=== PATIENT | female | born 1945 | race Caucasian/White ===

== ENCOUNTER 2017-01-30 04:08 | Inpatient (IN) | payer MEDICARE, BC ==
[2017-01-30] MEDS ORDERED: ONDANSETRON 4 MG/2 ML VIAL IVP STA (05:03)
[2017-01-30] MEDS ORDERED: HYDROmorphone 1 MG/ML 1 ML SYRINGE IVP STA ×2 (05:03→07:03)
--- NOTE | 2017-01-30 05:20 | ED ---
Upper Extremity HPI - General Chief Complaint: Extremity Injury, Upper Stated Complaint: arm injury Time Seen by Provider: 01/30/17 04:51 Source: patient, EMS Mode of arrival: EMS - History of Present Illness Initial Comments: This patient is a 71-year-old woman brought in to be evaluated by EMS. History is from the patient and from her significant other, who state that she had gotten up to use the bathroom, she then thinks she lost her balance and fell, striking her left shoulder against the floor wall. She has significant pain at the shoulder and is not able to move her arm without severe pain. Patient denies other injury. She did not have loss of consciousness. She was able to stand to get up onto the EMS stretcher. The patient had her shoulder placed in a sling by EMS and that did help with the pain little bit. She also had some analgesics from EMS and that also helped. She states that if she just lies still the pain is mild to moderate but any movement of the left arm makes the pain severe. Patient denies weakness or numbness of the hand. MD Complaint: Injury to:: left, shoulder Onset/Timin -: hour(s) Handedness: right Place: home Improves With: immobilization Worsens With: movement of extremity Context: fall Associated Symptoms: denies other symptoms, heard/felt popping sensat Treatments Prior to Arrival: splint (Sling) - Related Data Home Medications Medication Instructions Recorded Confirmed Metoprolol Succinate [Toprol XL] 50 mg PO DAILY 04/09/14 01/30/17 Rosuvastatin [Crestor] 20 mg PO HS 04/09/14 01/30/17 metFORMIN HCL [Glucophage] 500 mg PO DAILY 04/09/14 01/30/17 Previous Rx's Medication Instructions Recorded Hydrocodone/Acetaminophen [[place] 1 each PO Q6HR PRN #30 tab 01/30/17 5-325] Allergies Allergy/AdvReac Type Severity Reaction Status Date / Time No Known Allergies Allergy Verified 01/30/17 04:17 Review of Systems ROS Statement: Those systems with pertinent positive or pertinent negative responses have been documented in the HPI. ROS Other: All systems not noted in ROS Statement are negative. Constitutional: Denies: fever, weakness Eyes: Denies: vision change Respiratory: Denies: cough, dyspnea Cardiovascular: Denies: chest pain, orthopnea, syncope Gastrointestinal: Denies: abdominal pain, vomiting Musculoskeletal: Reports: as per HPI, arthralgia. Denies: back pain Skin: Denies: lesions Neurological: Denies: headache, weakness, numbness, paresthesias Hematological/Lymphatic: Denies: easy bleeding Past Medical History Past Medical History: COPD, Diabetes Mellitus, Hyperlipidemia, Hypertension Additional Past Medical History / Comment(s): 12/06/15 Pt presented to [facility] ER via EMS with DIANA x 2 days. She has a productive cough of yellow phlegm. She received an updraft by EMS with some relief. She is admitted with ARDS, acute exacerbation of airway disease. Other HX: NIDDM, tracheobronchitis. History of Any Multi-Drug Resistant Organisms: None Reported Past Surgical History: Hysterectomy, Orthopedic Surgery, Tonsillectomy Additional Past Surgical History / Comment(s): d&c, left knee arthroscopy, R eye surgery which pt cannot recall what kind, Past Anesthesia/Blood Transfusion Reactions: No Reported Reaction Past Psychological History: No Psychological Hx Reported Additional Psychological History / Comment(s): Pt lives alone. She is independent. She uses no assistive device. She drives. She has a glucometer. Smoking Status: Current every day smoker Past Alcohol Use History: Occasional Additional Past Alcohol Use History / Comment(s): Pt states she smokes between -1 ppd. She has been smoking for about 50 yrs. Past Drug Use History: None Reported - Past Family History Father Family Medical History: Congestive Heart Failure (CHF), Myocardial Infarction ( [place]) Additional Family Medical History / Comment(s): Father of [place]/ CHF at age 40 or 41 yrs. Mother Family Medical History: Congestive Heart Failure (CHF), Myocardial Infarction ( [place]) Additional Family Medical History / Comment(s): Mother at age 90 yrs. General Exam General appearance: alert, in no apparent distress Head exam: Present: atraumatic, normocephalic Eye exam: Present: normal appearance Course Vital Signs 01/30/17 04:12 Temperature 98.2 F Pulse Rate 90 Respiratory 18 Rate Blood Pressure 131/74 O2 Sat by Pulse 93 L Oximetry Disposition Clinical Impression: Fracture of humerus Disposition: ADMITTED IP TO THIS HOSP Condition: Fair Instructions: Arm Fracture in Adults (ED) Prescriptions: Hydrocodone/Acetaminophen [[place] 5-325] 1 each PO Q6HR PRN #30 tab PRN Reason: Pain Referrals: Zeinab Pimentel MD [Primary Care Provider] - 1-2 days Jatinder Villafuerte MD [STAFF PHYSICIAN] - 1-2 days
--- NOTE | 2017-01-30 05:49 | XR ---
EXAM: XR Left Shoulder Complete, 2 or More Views. CLINICAL HISTORY: Reason: trauma TECHNIQUE: Two or more views of the left shoulder. COMPARISON: No relevant prior studies available. FINDINGS: Bones: Acute oblique slightly displaced and minimally impacted fracture of the humeral neck. There may be an additional nondisplaced component involving the lateral humeral head. Osteopenia and degenerative changes are present, the latter notably within the glenohumeral joint. Joints: See above. Soft tissues: Unremarkable. IMPRESSION: Acute oblique slightly displaced and minimally impacted fracture of the humeral neck. There may be an additional nondisplaced component involving the lateral humeral head.
[2017-01-30] MEDS ORDERED: NALOXONE 0.4 MG/ML 1 ML VIAL IV PRN (07:20)
[2017-01-30] MEDS ORDERED: ONDANSETRON 4 MG/2 ML VIAL IVP PRN (07:20)
[2017-01-30 08:34] LABS: Basophils # (A) 0.1 k/uL (0-0.2); Basophils % (A) 1 %; CH 29.4; CHCM 32.2; Eosinophils # (A) 0.1 k/uL (0-0.7); Eosinophils % (A) 1 %; HCT 40.9 % (34.0-46.0); HDW 2.48; HGB 13.3 gm/dL (11.4-16.0); Luc # (Auto) 0.24; Luc % (Auto) 2; Lymphocytes # (A) 1.7 k/uL (1.0-4.8); Lymphocytes % (A) 11 %; MCHC 32.6 g/dL (31.0-37.0); MCV 91.9 fL (80.0-100.0); Mean Platelet Volume 9.2; Monocytes # (A) 0.7 k/uL (0-1.0); Monocytes % (A) 4 %; Neutrophils # (A) 12.5 k/uL (1.3-7.7); Neutrophils % (A) 82 %; RBC 4.45 m/uL (3.80-5.40); RDW 14.3 % (11.5-15.5); WBC 15.3 k/uL (3.8-10.6); WBC (Perox) 15.78
--- NOTE | 2017-01-30 08:37 | CT ---
EXAMINATION TYPE: CT shoulder LT wo con DATE OF EXAM: 01/30/2017 8:21 AM COMPARISON: NONE HISTORY: Evaluate fracture, surgical planning CT DLP: 537.10 mGycm Automated exposure control for dose reduction was used. FINDINGS: There is a fracture of the surgical neck of the humerus. Slight offset of the fracture fragment from the diaphysis is present. The humeral head articulates with the glenoid. Reconstructed images in the coronal and sagittal plane are reviewed on the computer. Degenerative spu rring is present at the humeral head. Osteoarthritic degenerative changes at the glenohumeral junctio n. Acromioclavicular junction is hypertrophy is some inferior spurring. Three-D reconstructed images performed separately on the ventricular computer by the technologist are presented. IMPRESSION: 1. FRACTURE AT THE HUMERAL NECK WITH SLIGHT OFFSET. 2. DEGENERATIVE JOINT CHANGES GLENOHUMERAL JOINT SPACE
[2017-01-30 08:43] LABS: Anion Gap 16 mmol/L; Blood Urea Nitrogen 10 mg/dL (7-17); Calcium 9.1 mg/dL (8.4-10.2); Carbon Dioxide 19 mmol/L (22-30); Chloride 108 mmol/L (98-107); Glucose 215 mg/dL (74-99); Magnesium 1.5 mg/dL (1.6-2.3); Non-African American GFR(MDRD) >60 (>60 ml/min/1.73 sqM); Sodium 143 mmol/L (137-145)
[2017-01-30 08:46] LABS: Appearance,Urine Cloudy (Clear); Bacteria,Urine Few /hpf; Bilirubin,Urine Negative (Negative); Glucose,Urine (UA) 4+ (Negative); Ketones,Urine 1+ (Negative); Leukocyte Esterase,Urine Large (Negative); Mucus,Urine Rare /hpf; Nitrite,Urine Positive (Negative); Particle Count 111541; Protein,Urine Trace (Negative); RBC,Urine 6 /hpf (0-5); Specific Gravity,Urine 1.011 (1.001-1.035); Squamous Epithelial Cell,Urine 1 /hpf (0-4); UA Billing (MACRO vs. MICRO) MICRO; Urobilinogen,Urine <2.0 mg/dL (<2.0); WBC,Urine >182 /hpf (0-5)
[2017-01-30 08:47] LABS: Potassium 5.1 mmol/L (3.5-5.1)
[2017-01-30 09:01] VITALS: BMI 27.4
[2017-01-30] MEDS ORDERED: MAGNESIUM SULFATE-D5W PMX 1 GM in DEXTROSE/WATER 1 100ML.BAG IVPB ONE (09:07)
--- NOTE | 2017-01-30 09:18 | P.HPOR ---
History of Present Illness H&P Date: 01/30/17 Chief Complaint: Left proximal humerus fracture This is a 71-year-old female who fell in her home late last evening sustaining injury to her left shoulder. On exam and x-ray in the emergency department she was found to have a proximal humerus fracture. A computed tomography scan was also obtained. She is admitted to our service for further evaluation and recommendations, as well as pain management. Past Medical History Past Medical History: COPD, Diabetes Mellitus, Hyperlipidemia, Hypertension, Memory Impairment, Pneumonia Additional Past Medical History / Comment(s): NIDDM, tracheobronchitis, memory problems. History of Any Multi-Drug Resistant Organisms: None Reported Past Surgical History: Hysterectomy, Orthopedic Surgery, Tonsillectomy Additional Past Surgical History / Comment(s): d&c, left knee arthroscopy, R eye cataract removal. Past Anesthesia/Blood Transfusion Reactions: No Reported Reaction Past Psychological History: No Psychological Hx Reported Additional Psychological History / Comment(s): Pt lives alone. She is independent. She uses no assistive device. She drives. She has a glucometer. Smoking Status: Current every day smoker Past Alcohol Use History: Occasional Additional Past Alcohol Use History / Comment(s): Pt states she smokes between -11/25 ppd. She has been smoking for about 51 yrs. Past Drug Use History: None Reported - Past Family History Father Family Medical History: Congestive Heart Failure (CHF), Myocardial Infarction ( [place]) Additional Family Medical History / Comment(s): Father of [place]/ CHF at age 40 or 41 yrs. Mother Family Medical History: Congestive Heart Failure (CHF), Myocardial Infarction ( [place]) Additional Family Medical History / Comment(s): Mother at age 90 yrs. Medications and Allergies Home Medications Medication Instructions Recorded Confirmed Type Metoprolol Succinate [Toprol XL] 50 mg PO DAILY 04/09/14 01/30/17 History Rosuvastatin [Crestor] 20 mg PO HS 04/09/14 01/30/17 History metFORMIN HCL [Glucophage] 500 mg PO DAILY 04/09/14 01/30/17 History Allergies Allergy/AdvReac Type Severity Reaction Status Date / Time No Known Allergies Allergy Verified 01/30/17 08:24 Physical Examination Is a 71-year-old female in no acute distress. She is alert and oriented 3. Exam of the head neck reveal no obvious deformity. She has full cervical spine motion without difficulty or pain. There is no pain on palpation about cervical spine or paraspinal musculature. Exam of the upper extremities reveals swelling and tenderness about the left shoulder. There is no ecchymosis at this time. She has limited motion secondary to pain. She has full elbow, wrist and finger motion without difficulty or pain. Neurovascular status the upper extremity is intact. Exam the lower extremities unremarkable. She has no obvious deformity. There is no hip pain with logroll bilaterally. She can lift each leg off the bed independently. There is a small abrasion and contusion about the lateral aspect of the right knee. There is no swelling or effusion to the knee area neurovascular status to the lower extremities is intact. Results X-rays and computed tomography scan of the left shoulder reveal a mildly displaced comminuted proximal humerus fracture. The articular surfaces intact. She has moderate to severe degenerative arthritis of the glenohumeral joint with multiple spurs. - Labs Labs: Abnormal Lab Results - Last 24 Hours (Table) 01/30/17 01/30/17 Range/Units 08:24 08:24 WBC 15.3 H (3.8-10.6) k/uL Neutrophils # 12.5 H (1.3-7.7) k/uL Chloride 108 H (98-107) mmol/L Carbon Dioxide 19 L (22-30) mmol/L Glucose 215 H (74-99) mg/dL Magnesium 1.5 L (1.6-2.3) mg/dL H & H 01/30/17 Range/Units 08:24 Hgb 13.3 (11.4-16.0) gm/dL Hct 40.9 (34.0-46.0) % Result Diagrams: 01/30/17 08:24 01/30/17 08:24 Assessment and Plan (1) Fracture of proximal end of left humerus Status: Acute (2) Degenerative arthritis of left shoulder region Status: Acute Plan: The clinical and radiographic findings are discussed the patient and her family. The case was discussed with Dr. Villafuerte was also reviewed the computed tomography scan. We discussed surgical versus nonsurgical options. With her medical history and degree of arthritis in that shoulder, it is recommended that we go with nonoperative treatment at this time. A sling has been ordered. We will see how she does getting up with nursing and therapy. If she has difficulty with ambulation and ADLs, she may be a candidate for inpatient rehab.
[2017-01-30] MEDS ORDERED: HYDROcodone/APAP 5-325MG 1 EACH TAB PO PRN (09:55)
[2017-01-30] MEDS: HYDROmorphone 1 MG/ML 1 ML SYRINGE IV PRN (10:24)
[2017-01-30] MEDS: SODIUM CHLORIDE 0.9% 1,000 ML IV SCH ×2 (10:37→16:08)
[2017-01-30] MEDS: METOPROLOL SUCCINATE (ER) 50 MG TAB.ER.24H PO SCH (10:38)
[2017-01-30 11:45] LABS: Glucose,Whole Blood 187 mg/dL (75-99)
--- NOTE | 2017-01-30 12:22 | P.CONS ---
History of Present Illness - Reason for Consult Consult date: 01/30/17 Medical management Requesting physician: Jatinder Villafuerte - Chief Complaint Left humerus fracture - History of Present Illness This is a 71-year-old female with a known past medical history of COPD, hypertension, nicotine dependence, diabetes and hyperlipidemia. Patient reports that she was sitting in her living room got up to go use the bathroom and she tripped and fell. She landed on her left shoulder. She had significant pain and unable to move her arm. She denies any loss of consciousness. EMS was called. Patient was brought into the emergency room. She was admitted to orthopedic service. She was found to have a left humerus fracture. Computed tomography scan of the shoulder also showing fracture of the humeral neck with slight offset. Orthopedics are not recommending any surgical intervention. Patient's arm is in a sling. Patient's white count on admission is 15.3 her urinalysis is positive for UTI. She started on Rocephin. Urine culture obtained. Patient denies any fevers chills or sweats. Denies any chest pain or shortness of breath. Denies any nausea or vomiting. Denies any bowel movement changes or urinary symptoms. Patient's is noncompliant with her medications. She has not been taking her blood pressure medication or her diabetes medication regularly. She has been educated on the importance of taking medications as prescribed. Review of Systems Please refer to HPI otherwise unremarkable Past Medical History Past Medical History: COPD, Diabetes Mellitus, Hyperlipidemia, Hypertension, Memory Impairment, Pneumonia Additional Past Medical History / Comment(s): NIDDM, tracheobronchitis, memory problems. History of Any Multi-Drug Resistant Organisms: None Reported Past Surgical History: Hysterectomy, Orthopedic Surgery, Tonsillectomy Additional Past Surgical History / Comment(s): d&c, left knee arthroscopy, R eye cataract removal. Past Anesthesia/Blood Transfusion Reactions: No Reported Reaction Past Psychological History: No Psychological Hx Reported Additional Psychological History / Comment(s): Pt lives alone. She is independent. She uses no assistive device. She drives. She has a glucometer. Smoking Status: Current every day smoker Past Alcohol Use History: Occasional Additional Past Alcohol Use History / Comment(s): Pt states she smokes between -11/25 ppd. She has been smoking for about 51 yrs. Past Drug Use History: None Reported - Past Family History Father Family Medical History: Congestive Heart Failure (CHF), Myocardial Infarction ( [place]) Additional Family Medical History / Comment(s): Father of [place]/ CHF at age 40 or 41 yrs. Mother Family Medical History: Congestive Heart Failure (CHF), Myocardial Infarction ( [place]) Additional Family Medical History / Comment(s): Mother at age 90 yrs. Medications and Allergies Home Medications Medication Instructions Recorded Confirmed Type Rosuvastatin [Crestor] 20 mg PO HS 04/09/14 01/30/17 History metFORMIN HCL [Glucophage] 500 mg PO BID 04/09/14 01/30/17 History Multivitamins, Thera [Multivitamin] 1 tab PO DAILY 01/30/17 01/30/17 History Foley-3 Fatty Acids/Fish Oil [Fish 1 cap PO DAILY 01/30/17 01/30/17 History Oil 1,000 mg Softgel] Allergies Allergy/AdvReac Type Severity Reaction Status Date / Time No Known Allergies Allergy Verified 01/30/17 08:24 Physical Exam Vitals: Vital Signs Temp Pulse Pulse Resp BP BP Pulse Ox 01/30/17 08:47 97.7 F 83 15 150/71 01/30/17 08:41 97.7 F 83 16 180/85 92 L 01/30/17 08:33 98.8 F 93 16 150/82 93 L 01/30/17 08:29 98.8 F 93 16 150/82 93 L Intake and Output 01/29/17 01/30/17 01/30/17 22:59 06:59 14:59 Other: # Voids 1 Weight 74.843 kg Patient Weight 01/31/17 06:59 Weight 74.843 kg Head normocephalic Neck supple Lungs clear to auscultation bilaterally no wheezing or crackles Heart regular rate and rhythm S1-S2, no rub or gallop Abdomen is soft nontender nondistended positive bowel sounds no hepatosplenomegaly Extremities no edema of lower extremities. Left arm in sling. Neuro alert and orientated to 3 Results CBC & Chem 7: 01/30/17 08:24 01/30/17 08:24 Labs: Abnormal Lab Results - Last 24 Hours (Table) 01/30/17 01/30/17 01/30/17 Range/Units 08:24 08:24 11:35 WBC 15.3 H (3.8-10.6) k/uL Neutrophils # 12.5 H (1.3-7.7) k/uL Chloride 108 H (98-107) mmol/L Carbon Dioxide 19 L (22-30) mmol/L Glucose 215 H (74-99) mg/dL POC Glucose (mg/dL) 187 H (75-99) mg/dL Magnesium 1.5 L (1.6-2.3) mg/dL Assessment and Plan Plan: 1. Fracture of the humeral neck: Admitted to orthopedic service. The recommending nonoperative treatment. Her arm is in a sling. Continue with current pain control. 2. UTI: Start Rocephin. Check urine culture 3. Hypomagnesemia and patient receiving magnesium supplement. Repeat labs in a.m. 4. Leukocytosis possibly related to UTI or reactive from the humerus fracture. Repeat labs in a.m. 5. Essential hypertension: Resume her metoprolol 6. Diabetes mellitus type 2: Hold metformin during hospital and sliding scale coverage. 7. Hyperlipidemia continue with the Lipitor 8. Nicotine dependence: Start nicotine patch. Patient counseled for greater than 3 minutes regarding smoking cessation Note the patient is noncompliant with her blood pressure medication and metformin at home. Patient has been educated to take prescriptions as prescribed by her physicians. Thank you for this consultation. We will continue to follow along with you. Time with Patient: Greater than 30 (Greater than 50% of the total time spent in counseling and coordination of care.I performed an examination of the patient and discussed their management with the physician Epic Prelude Analyst. I have reviewed the Physician Epic Prelude Analyst's notes and agree with the documented findings and plan of care)
[2017-01-30] MEDS: NICOTINE 14MG/24HR PATCH TRANSDERM SCH (12:32)
[2017-01-30] MEDS: INSULIN LISPRO (humaLOG) 300 UNIT/3 ML VIAL SQ SCH ×3 (12:33→21:33)
[2017-01-30] MEDS: HYDROcodone/APAP 5-325MG 1 EACH TAB PO PRN ×2 (12:34→17:40)
[2017-01-30 12:42] LABS: Hemoglobin A1C 7.9 % (4.2-6.1)
[2017-01-30 16:39] LABS: Glucose,Whole Blood 135 mg/dL (75-99)
[2017-01-30 20:23] LABS: Glucose,Whole Blood 174 mg/dL (75-99)
[2017-01-30] MEDS: ATORVASTATIN 40 MG TAB PO SCH (21:35)
[2017-01-31] MEDS: SODIUM CHLORIDE 0.9% 1,000 ML IV SCH ×3 (00:36→17:16)
[2017-01-31] MEDS: HYDROcodone/APAP 5-325MG 1 EACH TAB PO PRN ×5 (00:36→22:30)
[2017-01-31 06:57] LABS: Glucose,Whole Blood 141 mg/dL (75-99)
[2017-01-31] MEDS: NICOTINE 14MG/24HR PATCH TRANSDERM SCH (07:53)
[2017-01-31] MEDS: METOPROLOL SUCCINATE (ER) 50 MG TAB.ER.24H PO SCH (07:54)
[2017-01-31] MEDS: INSULIN LISPRO (humaLOG) 300 UNIT/3 ML VIAL SQ SCH ×4 (07:54→21:14)
[2017-01-31 07:56] LABS: Basophils # (A) 0.1 k/uL (0-0.2); Basophils % (A) 1 %; CH 29.1; CHCM 31.4; Eosinophils # (A) 0.2 k/uL (0-0.7); Eosinophils % (A) 2 %; HCT 37.7 % (34.0-46.0); HDW 2.48; HGB 11.8 gm/dL (11.4-16.0); Hypochromasia Slight; Luc # (Auto) 0.23; Luc % (Auto) 2; Lymphocytes % (A) 19 %; MCH 29.1 pg (25.0-35.0); MCHC 31.3 g/dL (31.0-37.0); MCV 93.2 fL (80.0-100.0); Mean Platelet Volume 8.7; Monocytes # (A) 0.8 k/uL (0-1.0); Monocytes % (A) 8 %; Neutrophils # (A) 6.9 k/uL (1.3-7.7); Neutrophils % (A) 68 %; RBC 4.05 m/uL (3.80-5.40); RDW 14.1 % (11.5-15.5); WBC 10.3 k/uL (3.8-10.6)
[2017-01-31 08:15] LABS: ALT 25 U/L (9-52); AST 21 U/L (14-36); Alkaline Phosphatase 85 U/L (38-126); Anion Gap 11 mmol/L; Blood Urea Nitrogen 13 mg/dL (7-17); Calcium 8.6 mg/dL (8.4-10.2); Carbon Dioxide 23 mmol/L (22-30); Chloride 108 mmol/L (98-107); Glucose 152 mg/dL (74-99); Magnesium 1.9 mg/dL (1.6-2.3); Non-African American GFR(MDRD) >60 (>60 ml/min/1.73 sqM); Potassium 4.4 mmol/L (3.5-5.1); Sodium 142 mmol/L (137-145); Total Bilirubin 0.9 mg/dL (0.2-1.3); Total Protein 5.8 g/dL (6.3-8.2)
--- NOTE | 2017-01-31 08:20 | P.PN ---
Subjective Principal diagnosis: Proximal humerus fracture left shoulder This is a 71-year-old female admitted on 02/09/2017 for a proximal humerus fracture of the left shoulder. She is doing well from an orthopedic standpoint today. She did have some difficulty with independent ADLs and ambulation. It is recommended that she go to inpatient rehab. She is awaiting clearance and transfer. Objective - Vital Signs Vital signs: Vital Signs Temp 98.6 F 01/31/17 07:00 Pulse 75 01/31/17 07:00 Resp 16 01/31/17 07:00 BP 124/81 01/31/17 07:00 Pulse Ox 93 L 01/31/17 07:00 Intake & Output 01/30/17 01/31/17 01/31/17 18:59 06:59 18:59 Intake Total 1125 Balance 1125 Weight 74.843 kg 74.843 kg Intake: IV 1125 Sodium Chloride 0.9% 1, 1125 000 ml @ 125 mls/hr IV . Q8H [facility] Rx#:[id number] Other: Voiding Method Toilet Toilet # Voids 1 1 - Exam Is a pleasant 71-year-old female in no acute distress. She is alert and oriented 3. Exam of the left upper extremity reveals mild swelling to the shoulder. There is no ecchymosis. She has full finger motion without difficulty or pain. Neurovascular status to the left upper extremity is intact. - Labs CBC & Chem 7: 01/31/17 07:04 01/31/17 07:04 Labs: Abnormal Lab Results - Last 24 Hours (Table) 01/30/17 01/30/17 01/30/17 Range/Units 08:24 08:24 08:24 WBC 15.3 H (3.8-10.6) k/uL Neutrophils # 12.5 H (1.3-7.7) k/uL Chloride 108 H (98-107) mmol/L Carbon Dioxide 19 L (22-30) mmol/L Glucose 215 H (74-99) mg/dL POC Glucose (mg/dL) (75-99) mg/dL Hemoglobin A1c 7.9 H (4.2-6.1) % Magnesium 1.5 L (1.6-2.3) mg/dL Total Protein (6.3-8.2) g/dL Albumin (3.5-5.0) g/dL 01/30/17 01/30/17 01/30/17 Range/Units 11:35 16:35 20:21 WBC (3.8-10.6) k/uL Neutrophils # (1.3-7.7) k/uL Chloride (98-107) mmol/L Carbon Dioxide (22-30) mmol/L Glucose (74-99) mg/dL POC Glucose (mg/dL) 187 H 135 H 174 H (75-99) mg/dL Hemoglobin A1c (4.2-6.1) % Magnesium (1.6-2.3) mg/dL Total Protein (6.3-8.2) g/dL Albumin (3.5-5.0) g/dL 01/31/17 01/31/17 Range/Units 06:53 07:04 WBC (3.8-10.6) k/uL Neutrophils # (1.3-7.7) k/uL Chloride 108 H (98-107) mmol/L Carbon Dioxide (22-30) mmol/L Glucose 152 H (74-99) mg/dL POC Glucose (mg/dL) 141 H (75-99) mg/dL Hemoglobin A1c (4.2-6.1) % Magnesium (1.6-2.3) mg/dL Total Protein 5.8 L (6.3-8.2) g/dL Albumin 3.3 L (3.5-5.0) g/dL Microbiology - Last 24 Hours (Table) 01/30/17 12:00 Urine Culture - Preliminary Urine,Voided Assessment and Plan (1) Fracture of proximal end of left humerus Status: Acute (2) Degenerative arthritis of left shoulder region Status: Acute Plan: Continue care. Planning discharge to inpatient rehab when cleared medically and accepted.
--- NOTE | 2017-01-31 12:06 | P.PN ---
Subjective Fall with left humerus fracture. Patient's arm is in sling. Orthopedics or not recommending any surgical intervention. Pain is tolerable. There is an patient for possible inpatient rehab. Patient denies any chest pain or shortness of breath. Denies any nausea or vomiting. She did report having a bowel movement. She denies any difficulty urinating Objective - Vital Signs Vital signs: Vital Signs Temp 98.6 F 01/31/17 07:00 Pulse 75 01/31/17 08:00 Resp 16 01/31/17 08:00 BP 124/81 01/31/17 07:00 Pulse Ox 93 L 01/31/17 07:00 Intake & Output 01/30/17 01/31/17 01/31/17 18:59 06:59 18:59 Intake Total 1125 Balance 1125 Weight 74.843 kg 74.843 kg Intake: IV 1125 Sodium Chloride 0.9% 1, 1125 000 ml @ 125 mls/hr IV . Q8H [facility] Rx#:[id number] Other: Voiding Method Toilet Toilet Toilet # Voids 1 1 1 - Exam Head normocephalic Neck supple Lungs clear to auscultation bilaterally no wheezing or crackles Heart regular rate and rhythm S1-S2, no rub or gallop Abdomen is soft nontender nondistended positive bowel sounds no hepatosplenomegaly Extremities no edema of the lower extremities. Left arm in sling. +2 radial pulse. Neuro alert and orientated to 3 - Labs CBC & Chem 7: 01/31/17 07:04 01/31/17 07:04 Labs: Abnormal Lab Results - Last 24 Hours (Table) 01/30/17 01/30/17 01/30/17 Range/Units 08:24 16:35 20:21 Chloride (98-107) mmol/L Glucose (74-99) mg/dL POC Glucose (mg/dL) 135 H 174 H (75-99) mg/dL Hemoglobin A1c 7.9 H (4.2-6.1) % Total Protein (6.3-8.2) g/dL Albumin (3.5-5.0) g/dL 01/31/17 01/31/17 Range/Units 06:53 07:04 Chloride 108 H (98-107) mmol/L Glucose 152 H (74-99) mg/dL POC Glucose (mg/dL) 141 H (75-99) mg/dL Hemoglobin A1c (4.2-6.1) % Total Protein 5.8 L (6.3-8.2) g/dL Albumin 3.3 L (3.5-5.0) g/dL Microbiology - Last 24 Hours (Table) 01/30/17 12:00 Urine Culture - Preliminary Urine,Voided Assessment and Plan Plan: 1. Fracture of the humeral neck: Admitted to orthopedic service. The recommending nonoperative treatment. Her arm is in a sling. Continue with current pain control. 2. UTI: Start Rocephin. urine culture pending 3. Hypomagnesemia and patient receiving magnesium supplement. Repeat magnesium level I.9 4. Leukocytosis possibly related to UTI or reactive from the humerus fracture. White count has normalized 5. Essential hypertension: Resume her metoprolol 6. Diabetes mellitus type 2: Hold metformin during hospital and sliding scale coverage. 7. Hyperlipidemia continue with the Lipitor 8. Nicotine dependence: Start nicotine patch. Patient counseled for greater than 3 minutes regarding smoking cessation Note the patient is noncompliant with her blood pressure medication and metformin at home. Patient has been educated to take prescriptions as prescribed by her physicians. Patient is being assessed for possible inpatient rehab
[2017-01-31 12:16] LABS: Glucose,Whole Blood 125 mg/dL (75-99)
--- NOTE | 2017-01-31 14:24 | XR ---
EXAMINATION TYPE: XR chest 2V DATE OF EXAM: 01/31/2017 2:00 PM COMPARISON: NONE TECHNIQUE: PA and lateral views submitted. HISTORY: ECF placement FINDINGS: The lungs are clear and there is no pneumothorax, pleural effusion, or focal pneumonia. Calcified l ymph nodes noted. Calcified granuloma right upper lobe. Arthropathy shoulders with evidence of previous trauma in the left humerus. IMPRESSION: 1. No acute process. Chronic granulomatous changes seen. 2. Fracture left humeral neck
[2017-01-31 16:56] LABS: Glucose,Whole Blood 162 mg/dL (75-99)
[2017-01-31] MEDS: ENOXAPARIN 40 MG/0.4 ML SYRINGE SQ SCH (17:23)
[2017-01-31 20:58] LABS: Glucose,Whole Blood 167 mg/dL (75-99)
[2017-01-31] MEDS: ATORVASTATIN 40 MG TAB PO SCH (21:14)
[2017-02-01] MEDS: HYDROmorphone 1 MG/ML 1 ML SYRINGE IV PRN (01:05)
[2017-02-01] MEDS: SODIUM CHLORIDE 0.9% 1,000 ML IV SCH ×3 (01:15→18:38)
[2017-02-01] MEDS: HYDROcodone/APAP 5-325MG 1 EACH TAB PO PRN (04:27)
[2017-02-01 06:53] LABS: Glucose,Whole Blood 148 mg/dL (75-99)
[2017-02-01 07:16] LABS: Basophils # (A) 0.1 k/uL (0-0.2); Basophils % (A) 1 %; CH 29.2; CHCM 32.1; Eosinophils # (A) 0.3 k/uL (0-0.7); Eosinophils % (A) 3 %; HCT 37.3 % (34.0-46.0); HDW 2.48; HGB 11.6 gm/dL (11.4-16.0); Luc # (Auto) 0.22; Luc % (Auto) 2; Lymphocytes # (A) 1.6 k/uL (1.0-4.8); Lymphocytes % (A) 14 %; MCH 28.6 pg (25.0-35.0); MCHC 31.2 g/dL (31.0-37.0); MCV 91.4 fL (80.0-100.0); Mean Platelet Volume 9.1; Monocytes # (A) 0.9 k/uL (0-1.0); Monocytes % (A) 9 %; Neutrophils # (A) 7.9 k/uL (1.3-7.7); Neutrophils % (A) 72 %; RBC 4.08 m/uL (3.80-5.40); RDW 14.2 % (11.5-15.5); WBC (Perox) 11.04
[2017-02-01 07:54] LABS: ALT 29 U/L (9-52); AST 20 U/L (14-36); Alkaline Phosphatase 82 U/L (38-126); Anion Gap 10 mmol/L; Blood Urea Nitrogen 14 mg/dL (7-17); Calcium 8.9 mg/dL (8.4-10.2); Carbon Dioxide 25 mmol/L (22-30); Chloride 107 mmol/L (98-107); Glucose 158 mg/dL (74-99); Non-African American GFR(MDRD) >60 (>60 ml/min/1.73 sqM); Potassium 4.7 mmol/L (3.5-5.1); Sodium 142 mmol/L (137-145); Total Protein 6.1 g/dL (6.3-8.2)
[2017-02-01] MEDS: ENOXAPARIN 40 MG/0.4 ML SYRINGE SQ SCH (08:37)
[2017-02-01] MEDS: NICOTINE 14MG/24HR PATCH TRANSDERM SCH (08:38)
[2017-02-01] MEDS: INSULIN LISPRO (humaLOG) 300 UNIT/3 ML VIAL SQ SCH ×4 (08:38→19:33)
[2017-02-01] MEDS: METOPROLOL SUCCINATE (ER) 50 MG TAB.ER.24H PO SCH (08:38)
[2017-02-01] MEDS ORDERED: HYDROcodone/APAP 7.5-325MG 1 EACH TAB PO PRN (08:41)
[2017-02-01] MEDS: HYDROcodone/APAP 7.5-325MG 1 EACH TAB PO PRN ×2 (08:58→15:09)
--- NOTE | 2017-02-01 09:22 | P.PN ---
Subjective Principal diagnosis: Left proximal humerus fracture Patient is a pleasant 71-year-old female seen at bedside today. She she has a left proximal humerus fracture which she is pending placement and transfer to inpatient rehab facility. She has no new complaints today. She continues to have pain in the left arm as expected. She continues to have difficulties with ADLs due to the pain and fracture. She denies new complaints such as numbness, tingling, burning or weakness. Review of systems is negative for fever, chills , chest pain, shortness breath, cough, calf pain or other. Objective - Vital Signs Vital signs: Vital Signs Temp 98.8 F 02/01/17 07:00 Pulse 89 02/01/17 07:00 Resp 18 02/01/17 07:00 BP 133/67 02/01/17 07:00 Pulse Ox 96 02/01/17 07:00 Intake & Output 01/31/17 02/01/17 02/01/17 18:59 06:59 18:59 Intake Total 740 200 Balance 740 200 Intake: Oral 740 200 Other: Voiding Method Toilet Toilet # Voids 2 2 1 - Exam Inspection of the left upper extremity shows resolving ecchymoses. She has intact sensation to light touch throughout the left upper extremity. She has active motor at the elbow, wrist, hand and fingers. 2+ radial pulses are present and less than 2 second cap refill is present. 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 - Constitutional General appearance: Present: no acute distress - Psychiatric Psychiatric: Present: A&O x's 3, appropriate affect, intact judgment & insight - Labs CBC & Chem 7: 02/01/17 06:43 02/01/17 06:43 Labs: Abnormal Lab Results - Last 24 Hours (Table) 01/31/17 01/31/17 01/31/17 Range/Units 12:13 16:48 20:57 WBC (3.8-10.6) k/uL Neutrophils # (1.3-7.7) k/uL Glucose (74-99) mg/dL POC Glucose (mg/dL) 125 H 162 H 167 H (75-99) mg/dL Total Protein (6.3-8.2) g/dL 02/01/17 02/01/17 02/01/17 Range/Units 06:43 06:43 06:48 WBC 11.0 H (3.8-10.6) k/uL Neutrophils # 7.9 H (1.3-7.7) k/uL Glucose 158 H (74-99) mg/dL POC Glucose (mg/dL) 148 H (75-99) mg/dL Total Protein 6.1 L (6.3-8.2) g/dL Microbiology - Last 24 Hours (Table) 01/30/17 12:00 Urine Culture - Preliminary Urine,Voided Gram Neg Bacilli Assessment and Plan (1) Fracture of proximal end of left humerus Narrative/Plan: She'll continue with routine orthopedic protocol including pain management, neurovascular status checks and medical management. I have increased her pain medication to [place] 7.5 as she continues to have some significant discomfort at the fracture site. She is pending placement and transfer to rehab which expect to be by 02/03/2017. Status: Acute Time with Patient: Less than 30
[2017-02-01 11:10] LABS: Glucose,Whole Blood 139 mg/dL (75-99)
[2017-02-01 17:16] LABS: Glucose,Whole Blood 119 mg/dL (75-99)
--- NOTE | 2017-02-01 17:22 | P.PN ---
Subjective Principal diagnosis: Left humeral neck fracture Patient is a 71-year-old female who sustained a fall and had left humeral neck fracture She was evaluated by orthopedic surgery no surgical intervention was recommended [facility] Clinically she is complaining of pain otherwise no complaints at this time Objective - Vital Signs Vital signs: Vital Signs Temp 97.9 F 02/01/17 13:42 Pulse 79 02/01/17 13:42 Resp 15 02/01/17 13:42 BP 123/70 02/01/17 13:42 Pulse Ox 96 02/01/17 13:42 Intake & Output 01/31/17 02/01/17 02/01/17 18:59 06:59 18:59 Intake Total 740 200 360 Balance 740 200 360 Intake: Oral 740 200 360 Other: Voiding Method Toilet Toilet # Voids 2 2 1 - Exam HEENT head normocephalic and atraumatic Neck is supple no JVD Chest is clear to auscultation Cardiac exam reveals regular heart sounds S1 and S2 no gallops no murmurs Abdomen is soft nontender no organomegaly Extremity exam reveals no edema no cyanosis or clubbing - Labs CBC & Chem 7: 02/01/17 06:43 02/01/17 06:43 Labs: Abnormal Lab Results - Last 24 Hours (Table) 01/31/17 02/01/17 02/01/17 Range/Units 20:57 06:43 06:43 WBC 11.0 H (3.8-10.6) k/uL Neutrophils # 7.9 H (1.3-7.7) k/uL Glucose 158 H (74-99) mg/dL POC Glucose (mg/dL) 167 H (75-99) mg/dL Total Protein 6.1 L (6.3-8.2) g/dL 02/01/17 02/01/17 Range/Units 06:48 11:04 WBC (3.8-10.6) k/uL Neutrophils # (1.3-7.7) k/uL Glucose (74-99) mg/dL POC Glucose (mg/dL) 148 H 139 H (75-99) mg/dL Total Protein (6.3-8.2) g/dL Microbiology - Last 24 Hours (Table) 01/30/17 12:00 Urine Culture - Final Urine,Voided Escherichia coli Assessment and Plan Plan: #1 fracture of the humeral neck #2 UTI maintained on IV Rocephin awaiting urine culture results #3 leukocytosis resolved #4 hypomagnesemia improved #5 hypertension well-controlled on current medication #6Diabetes mellitus maintained on insulin per sliding scale #7 hyperlipidemia on Lipitor continue #8 nicotine dependence maintained on nicotine patch
[2017-02-01] MEDS ORDERED: HYDROcodone/APAP 10-325MG 1 EACH TAB PO PRN (18:32)
[2017-02-01] MEDS: ATORVASTATIN 40 MG TAB PO SCH (19:32)
[2017-02-01 19:33] LABS: Glucose,Whole Blood 207 mg/dL (75-99)
[2017-02-01] MEDS: HYDROcodone/APAP 10-325MG 1 EACH TAB PO PRN (21:42)
[2017-02-02] MEDS: SODIUM CHLORIDE 0.9% 1,000 ML IV SCH ×2 (03:15→20:57)
[2017-02-02] MEDS: HYDROcodone/APAP 10-325MG 1 EACH TAB PO PRN ×3 (05:07→17:44)
[2017-02-02 06:53] LABS: Glucose,Whole Blood 150 mg/dL (75-99)
[2017-02-02 07:50] LABS: ALT 26 U/L (9-52); AST 18 U/L (14-36); Alkaline Phosphatase 84 U/L (38-126); Anion Gap 12 mmol/L; Blood Urea Nitrogen 11 mg/dL (7-17); Calcium 9.1 mg/dL (8.4-10.2); Carbon Dioxide 27 mmol/L (22-30); Chloride 103 mmol/L (98-107); Glucose 158 mg/dL (74-99); Non-African American GFR(MDRD) >60 (>60 ml/min/1.73 sqM); Potassium 4.3 mmol/L (3.5-5.1); Sodium 142 mmol/L (137-145); Total Bilirubin 1.2 mg/dL (0.2-1.3); Total Protein 6.3 g/dL (6.3-8.2)
[2017-02-02 07:52] LABS: Basophils # (A) 0.1 k/uL (0-0.2); Basophils % (A) 1 %; CH 29.1; CHCM 31.7; Eosinophils # (A) 0.2 k/uL (0-0.7); Eosinophils % (A) 3 %; HCT 38.4 % (34.0-46.0); HDW 2.39; Luc # (Auto) 0.24; Luc % (Auto) 3; Lymphocytes # (A) 1.3 k/uL (1.0-4.8); Lymphocytes % (A) 15 %; MCH 28.8 pg (25.0-35.0); MCHC 31.3 g/dL (31.0-37.0); MCV 92.3 fL (80.0-100.0); Mean Platelet Volume 8.3; Monocytes # (A) 0.7 k/uL (0-1.0); Monocytes % (A) 8 %; Neutrophils # (A) 6.1 k/uL (1.3-7.7); Neutrophils % (A) 71 %; RBC 4.16 m/uL (3.80-5.40); WBC 8.6 k/uL (3.8-10.6); WBC (Perox) 9.25
[2017-02-02] MEDS: ENOXAPARIN 40 MG/0.4 ML SYRINGE SQ SCH (08:12)
[2017-02-02] MEDS: INSULIN LISPRO (humaLOG) 300 UNIT/3 ML VIAL SQ SCH ×4 (08:13→21:00)
[2017-02-02] MEDS: METOPROLOL SUCCINATE (ER) 50 MG TAB.ER.24H PO SCH (08:13)
[2017-02-02] MEDS: NICOTINE 14MG/24HR PATCH TRANSDERM SCH (08:13)
[2017-02-02 08:17] VITALS: RESP 16
[2017-02-02] MEDS ORDERED: SENNOSIDES 8.6 MG TAB PO PRN (09:19)
--- NOTE | 2017-02-02 09:19 | P.PN ---
Subjective A 71-year-old female sitting up in a chair the left arm in a sling. Orthopedics recommended no surgical intervention at this time. Discharge plan in progress patient stating she's going to an [facility] facility for rehab tomorrow. Chief complaint no bowel movement in the last several days. Patient's denying nausea vomiting states pain medication effective for pain control Objective - Vital Signs Vital signs: Vital Signs Temp 98.4 F 02/02/17 08:17 Pulse 84 02/02/17 08:17 Resp 16 02/02/17 08:17 BP 136/75 02/02/17 08:17 Pulse Ox 93 L 02/02/17 08:17 Intake & Output 02/01/17 02/02/17 02/02/17 17:59 06:59 18:59 Intake Total 180 Balance 180 Intake: IV Sodium Chloride 0.9% 1, 000 ml @ 125 mls/hr IV . Q8H [facility] Rx#:[id number] Oral 180 Other: Voiding Method # Voids 1 - Exam Physical exam 71-year-old female sitting up in a chair pleasant cooperative oriented 3 Lungs essentially clear adequate air movement Heart S1-S2 audible and regular Abdomen soft nontender reports no nausea vomiting no stool states urinating no difficulty tolerating diet Extremities no edema to the lower extremities the left arm in a sling - Labs CBC & Chem 7: 02/02/17 06:57 02/02/17 06:57 Labs: Abnormal Lab Results - Last 24 Hours (Table) 02/01/17 02/01/17 02/01/17 Range/Units 11:04 17:11 19:31 Glucose (74-99) mg/dL POC Glucose (mg/dL) 139 H 119 H 207 H (75-99) mg/dL 02/02/17 02/02/17 Range/Units 06:46 06:57 Glucose 158 H (74-99) mg/dL POC Glucose (mg/dL) 150 H (75-99) mg/dL Microbiology - Last 24 Hours (Table) 01/30/17 12:00 Urine Culture - Final Urine,Voided Escherichia coli Assessment and Plan Plan: Impression Fracture of the left humeral neck Hyperlipidemia Nicotine dependency greater than a 50 year history type 2 diabetes non-insulin hemoglobin A1c 7.9 Essential hypertension present on admission leukocytosis suspect due to UTI or reactive from the humerus fracture resolving Present on admission UTI with a positive urine culture for E. coli Chronic constipation Plan Pain control Continue IV Rocephin as ordered for the UTI Monitor blood pressure address antihypertensive meds as indicated Discharge plan in progress transferred to ECF facility possible tomorrow patient request address constipation issues bowel stimulant continue home meds as appropriate patient's been counseled to stop smoking cigarettes continue the nicotine patch as ordered DVT and GI prophylaxis The above dictated assessment and findings were discussed with dr bacilio Benavides and the plan of care have been dictated as directed. Amanda Wilson nurse practitioner acting as a scribe for dr ribera
[2017-02-02] MEDS ORDERED: BISACODYL 5 MG TABLET.DR PO STA (09:20)
[2017-02-02] MEDS ORDERED: traMADol 50 MG TAB PO PRN (09:34)
--- NOTE | 2017-02-02 09:46 | P.PN ---
Subjective Principal diagnosis: Left proximal humerus fracture Patient is a pleasant 71-year-old female seen at bedside today. She she has a left proximal humerus fracture which she is pending placement and transfer to inpatient rehab facility. She has no new complaints today. She continues to have pain in the left arm as expected. She continues to have difficulties with ADLs due to the pain and fracture. She denies new complaints such as numbness, tingling, burning or weakness. Review of systems is negative for fever, chills , chest pain, shortness breath, cough, calf pain or other. Objective - Vital Signs Vital signs: Vital Signs Temp 98.4 F 02/02/17 08:17 Pulse 84 02/02/17 08:17 Resp 16 02/02/17 08:17 BP 136/75 02/02/17 08:17 Pulse Ox 93 L 02/02/17 08:17 Intake & Output 02/01/17 02/02/17 02/02/17 17:59 06:59 18:59 Intake Total 180 Balance 180 Intake: IV Sodium Chloride 0.9% 1, 000 ml @ 125 mls/hr IV . Q8H [facility] Rx#:[id number] Oral 180 Other: Voiding Method # Voids 1 - Exam Inspection of the left upper extremity shows resolving ecchymoses. She has intact sensation to light touch throughout the left upper extremity. She has active motor at the elbow, wrist, hand and fingers. 2+ radial pulses are present and less than 2 second cap refill is present. 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 - Constitutional General appearance: Present: no acute distress - Psychiatric Psychiatric: Present: A&O x's 3, appropriate affect, intact judgment & insight - Labs CBC & Chem 7: 02/02/17 06:57 02/02/17 06:57 Labs: Abnormal Lab Results - Last 24 Hours (Table) 02/01/17 02/01/17 02/01/17 Range/Units 11:04 17:11 19:31 Glucose (74-99) mg/dL POC Glucose (mg/dL) 139 H 119 H 207 H (75-99) mg/dL 02/02/17 02/02/17 Range/Units 06:46 06:57 Glucose 158 H (74-99) mg/dL POC Glucose (mg/dL) 150 H (75-99) mg/dL Microbiology - Last 24 Hours (Table) 01/30/17 12:00 Urine Culture - Final Urine,Voided Escherichia coli Assessment and Plan (1) Fracture of proximal end of left humerus Narrative/Plan: She'll continue with routine orthopedic protocol including pain management, neurovascular status checks and medical management. She is pending placement and transfer to rehab which we expect to be 02/03/2017. Status: Acute Time with Patient: Less than 30
[2017-02-02 11:17] LABS: Glucose,Whole Blood 176 mg/dL (75-99)
[2017-02-02] MEDS: POLYETHYLENE GLYCOL 3350 17 GM POWD.PACK PO SCH (13:17)
[2017-02-02 17:08] LABS: Glucose,Whole Blood 131 mg/dL (75-99)
[2017-02-02 20:36] LABS: Glucose,Whole Blood 178 mg/dL (75-99)
[2017-02-02] MEDS: ATORVASTATIN 40 MG TAB PO SCH (20:59)
[2017-02-02] MEDS: traMADol 50 MG TAB PO SCH (21:00)
[2017-02-03] MEDS: SODIUM CHLORIDE 0.9% 1,000 ML IV SCH ×2 (04:12→08:51)
[2017-02-03] MEDS: traMADol 50 MG TAB PO SCH ×2 (05:19→08:56)
[2017-02-03] MEDS: HYDROcodone/APAP 10-325MG 1 EACH TAB PO PRN (05:58)
[2017-02-03 07:06] LABS: Glucose,Whole Blood 157 mg/dL (75-99)
[2017-02-03 07:47] LABS: Basophils # (A) 0.1 k/uL (0-0.2); Basophils % (A) 1 %; CH 28.5; CHCM 29.5; Eosinophils # (A) 0.3 k/uL (0-0.7); Eosinophils % (A) 3 %; HCT 38.6 % (34.0-46.0); HDW 2.38; HGB 12.2 gm/dL (11.4-16.0); Hypochromasia Marked; Luc # (Auto) 0.29; Luc % (Auto) 3; Lymphocytes # (A) 1.4 k/uL (1.0-4.8); Lymphocytes % (A) 14 %; MCH 30.6 pg (25.0-35.0); MCHC 31.6 g/dL (31.0-37.0); MCV 96.9 fL (80.0-100.0); Mean Platelet Volume 8.5; Monocytes # (A) 1.3 k/uL (0-1.0); Monocytes % (A) 12 %; Neutrophils # (A) 6.9 k/uL (1.3-7.7); Neutrophils % (A) 67 %; RBC 3.99 m/uL (3.80-5.40); RDW 13.9 % (11.5-15.5); WBC 10.3 k/uL (3.8-10.6)
[2017-02-03 08:04] LABS: Manual Review Performed
[2017-02-03 08:35] VITALS: BP 134/66; PULSE 84; TEMP 98.5
[2017-02-03] MEDS: INSULIN LISPRO (humaLOG) 300 UNIT/3 ML VIAL SQ SCH ×2 (08:48→13:02)
[2017-02-03] MEDS: ENOXAPARIN 40 MG/0.4 ML SYRINGE SQ SCH (08:50)
[2017-02-03] MEDS: NICOTINE 14MG/24HR PATCH TRANSDERM SCH (08:50)
[2017-02-03] MEDS: METOPROLOL SUCCINATE (ER) 50 MG TAB.ER.24H PO SCH (08:50)
[2017-02-03] MEDS: POLYETHYLENE GLYCOL 3350 17 GM POWD.PACK PO SCH (08:50)
[2017-02-03] MEDS ORDERED: LACTULOSE 20 GM/30 ML CUP PO ONE (10:07)
--- NOTE | 2017-02-03 10:35 | P.DS ---
Providers Date of admission: 01/30/17 07:20 Expected date of discharge: 02/03/17 Attending physician: Jatinder Villafuerte Primary care physician: Zeinab Pimentel - Discharge Diagnosis(es) (1) Fracture of proximal end of left humerus Current Visit: Yes Status: Acute Priority: Medium (2) Degenerative arthritis of left shoulder region Current Visit: Yes Status: Acute Hospital Course: This is a 71-year-old female presents emergency department on 01/30/2017 after falling and sustaining injury to her left shoulder. On exam and x-ray in the emergency department she was found to have a proximal humerus fracture of the left arm. She was admitted to our service for further evaluation and pain management. The patient was found to have difficulties with independent ADLs and ambulation secondary to the left shoulder fracture. It is recommended that she go to inpatient rehab. Patient is discharged to [facility] for inpatient rehab on 02/03 in good condition. Patient Condition at Discharge: Fair Plan - Discharge Summary New Discharge Prescriptions: Hydrocodone/Acetaminophen [[place] 5-325] 1 each PO Q6HR PRN #30 tab PRN Reason: Pain Sennosides-Docusate Sodium [Senokot-S] 1 tab PO BID #60 tablet Discharge Medication List Rosuvastatin [Crestor] 20 mg PO HS 04/09/14 [History] metFORMIN HCL [Glucophage] 500 mg PO BID 04/09/14 [History] Hydrocodone/Acetaminophen [[place] 5-325] 1 each PO Q6HR PRN #30 tab 01/30/17 [Rx] Multivitamins, Thera [Multivitamin] 1 tab PO DAILY 01/30/17 [History] [place]-3 Fatty Acids/Fish Oil [Fish Oil 1,000 mg Softgel] 1 cap PO DAILY [History] Sennosides-Docusate Sodium [Senokot-S] 1 tab PO BID #60 tablet 01/31/17 [Rx] Follow up Appointment(s)/Referral(s): Jatinder Villafuerte MD [STAFF PHYSICIAN] - 02/11/17 9:20 am Zeinab Pimentel MD [Primary Care Provider] - 1-2 days (Patient going to [facility] and is to schedule follow up appointment after discharge from [facility].) Patient Instructions/Handouts: Arm Fracture in Adults (ED) Activity/Diet/Wound Care/Special Instructions: Sling left upper extremity for comfort. Discharge Disposition: TRANSFER TO SNF/ECF
--- NOTE | 2017-02-03 11:43 | P.PN ---
Subjective Fall with left humerus fracture. Patient's arm is in sling. Orthopedics or not recommending any surgical intervention. Pain is tolerable. There is an patient for possible inpatient rehab. Patient denies any chest pain or shortness of breath. Denies any nausea or vomiting. No abdominal pain. Did report constipation. She is passing gas. Last bowel movement 3-4 days ago. She is on stool softener and MiraLAX. We'll give 1 dose of lactulose. Objective - Vital Signs Vital signs: Vital Signs Temp 98.5 F 02/03/17 07:00 Pulse 84 02/03/17 07:00 Resp 16 02/03/17 07:00 BP 134/66 02/03/17 07:00 Pulse Ox 93 L 02/03/17 07:00 Intake & Output 02/02/17 02/03/17 02/03/17 18:59 06:59 18:59 Intake Total 298 600 Balance 298 600 Intake: Oral 298 600 Other: Voiding Method Toilet # Voids 1 2 - Exam Head normocephalic Neck supple Lungs clear to auscultation bilaterally no wheezing or crackles Heart regular rate and rhythm S1-S2, no rub or gallop Abdomen is soft nontender nondistended positive bowel sounds no hepatosplenomegaly Extremities no edema of the lower extremities. Left arm in sling. +2 radial pulse. Neuro alert and orientated to 3 - Labs CBC & Chem 7: 02/03/17 06:45 02/02/17 06:57 Labs: Abnormal Lab Results - Last 24 Hours (Table) 02/02/17 02/02/17 02/03/17 Range/Units 16:59 20:34 06:45 Monocytes # 1.3 H (0-1.0) k/uL POC Glucose (mg/dL) 131 H 178 H (75-99) mg/dL 02/03/17 Range/Units 06:59 Monocytes # (0-1.0) k/uL POC Glucose (mg/dL) 157 H (75-99) mg/dL Assessment and Plan Plan: 1. Fracture of the humeral neck: Admitted to orthopedic service. The recommending nonoperative treatment. Her arm is in a sling. Continue with current pain control. 2. UTI: Start Rocephin. Urine culture growing E. coli. Patient completed 5 days of Rocephin. No further antibiotic treatment needed 3. Hypomagnesemia and patient receiving magnesium supplement. Repeat magnesium level I.9 4. Leukocytosis possibly related to UTI or reactive from the humerus fracture. White count has normalized 5. Essential hypertension: Resume her metoprolol 6. Diabetes mellitus type 2: Hold metformin during hospital and sliding scale coverage. 7. Hyperlipidemia continue with the Lipitor 8. Nicotine dependence: Start nicotine patch. Patient counseled for greater than 3 minutes regarding smoking cessation 9. Constipation: Continue stool softener and MiraLAX. We'll give 1 dose of lactulose Note the patient is noncompliant with her blood pressure medication and metformin at home. Patient has been educated to take prescriptions as prescribed by her physicians. Patient is medically stable for discharge to [facility]. Dr. Lynn to follow at [facility]
[2017-02-03 12:13] LABS: Glucose,Whole Blood 113 mg/dL (75-99)
== END 2017-02-03 14:20 | DRG 563 ==
LOC: EC 04:08 → 3SUR 07:20
PROVIDERS: ADMIT Orthopaedic Surgery; ATTEND Orthopaedic Surgery
DX: S42.212A Unspecified displaced fracture of surgical neck of left humerus, initial encounter for closed fracture (principal); J44.9 Chronic obstructive pulmonary disease, unspecified; N39.0 Urinary tract infection, site not specified; E83.42 Hypomagnesemia; E11.9 Type 2 diabetes mellitus without complications; I10 Essential (primary) hypertension; E78.5 Hyperlipidemia, unspecified; F17.200 Nicotine dependence, unspecified, uncomplicated; K59.00 Constipation, unspecified; M19.90 Unspecified osteoarthritis, unspecified site; W01.0XXA Fall on same level from slipping, tripping and stumbling without subsequent striking against object, initial encounter; Y92.009 Unspecified place in unspecified non-institutional (private) residence as the place of occurrence of the external cause; Z79.899 Other long term (current) drug therapy; Z82.49 Family history of ischemic heart disease and other diseases of the circulatory system; Z91.14 Patient's other noncompliance with medication regimen; Z79.84 Long term (current) use of oral hypoglycemic drugs
CPT/HCPCS: 71020; 80048; 80053; 81001; 83036; 83735; 85025; 87077; 87086; 87186; 93005; 96374; 96375; 96376; 99284

== ENCOUNTER 2018-02-02 20:12 | Inpatient (IN) | payer MEDICARE, BC ==
[2018-02-02] MEDS ORDERED: methylPREDNISolone SOD SUCCI 125 MG/2 ML VIAL IV STA (20:46)
[2018-02-02] MEDS ORDERED: SODIUM CHLORIDE 0.9% 1,000 ML IV STA (20:46)
[2018-02-02] MEDS ORDERED: IPRATROPIUM-ALBUTEROL 3 ML NEB INHALATION STA ×2 (20:46→22:28)
--- NOTE | 2018-02-02 20:52 | ED ---
SOB HPI - General Chief Complaint: Shortness of Breath Stated Complaint: chest congestion DIANA HxCOPD Time Seen by Provider: 02/02/18 20:46 Source: patient, family, RN notes reviewed Mode of arrival: ambulatory Limitations: no limitations - History of Present Illness Initial Comments: This is a 72-year-old female history of COPD who states she's had shortness of breath over last several days. She's had a cough with some phlegm is unknown what color no overt fevers chills or sweats she also has had some chest pain with coughing. She does have an inhaler at home which she is only several times she did get some relief today which he did use a however. She also has some rhinorrhea and nasal congestion. She has exertional dyspnea. No other complaints this time the chest pain is nonspecific. MD Complaint: shortness of breath, cough - Related Data Home Medications Medication Instructions Recorded Confirmed metFORMIN HCL [Glucophage] 500 mg PO BID 04/09/14 02/02/18 Multivitamins, Thera [Multivitamin 1 tab PO DAILY 01/30/17 02/02/18 (formulary)] [place]-3 Fatty Acids/Fish Oil [Fish 1 cap PO HS 01/30/17 02/02/18 Oil 1,000 mg Softgel] Albuterol Inhaler [Ventolin Hfa 2 puff INHALATION RT-Q6H PRN 02/02/18 02/02/18 Inhaler] Atorvastatin [Lipitor] 80 mg PO HS 02/02/18 02/02/18 Cholecalciferol [Vitamin D3] 1,000 unit PO DAILY 02/02/18 02/02/18 Cranberry Fruit Concentrate 450 mg PO HS 02/02/18 02/02/18 [Cranberry] Memantine HCl [Namenda Xr] 7 mg PO HS 02/02/18 02/02/18 Metoprolol Succinate (ER) [Toprol 50 mg PO HS 02/02/18 02/02/18 XL] Zinc 50 mg PO DAILY 02/02/18 02/02/18 Allergies Allergy/AdvReac Type Severity Reaction Status Date / Time No Known Allergies Allergy Verified 02/02/18 21:14 Review of Systems ROS Statement: Those systems with pertinent positive or pertinent negative responses have been documented in the HPI. ROS Other: All systems not noted in ROS Statement are negative. Past Medical History Past Medical History: COPD, Dementia, Diabetes Mellitus, Hyperlipidemia, Hypertension, Memory Impairment, Pneumonia Additional Past Medical History / Comment(s): NIDDM, tracheobronchitis, memory problems. History of Any Multi-Drug Resistant Organisms: None Reported Past Surgical History: Hysterectomy, Orthopedic Surgery, Tonsillectomy Additional Past Surgical History / Comment(s): d&c, left knee arthroscopy, R eye cataract removal. Past Anesthesia/Blood Transfusion Reactions: No Reported Reaction Past Psychological History: No Psychological Hx Reported Smoking Status: Current every day smoker Past Alcohol Use History: Occasional Past Drug Use History: None Reported - Past Family History Father Family Medical History: Congestive Heart Failure (CHF), Myocardial Infarction ( [place]) Additional Family Medical History / Comment(s): Father of [place]/ CHF at age 40 or 41 yrs. Mother Family Medical History: Congestive Heart Failure (CHF), Myocardial Infarction ( [place]) Additional Family Medical History / Comment(s): Mother at age 90 yrs. General Exam - General Exam Comments Initial Comments: This is a well-developed well-nourished awake alert oriented 3 female she does demonstrate audible wheezing Limitations: no limitations General appearance: alert, anxious, in distress Head exam: Present: atraumatic, normocephalic, normal inspection Eye exam: Present: normal appearance, PERRL, EOMI. Absent: scleral icterus, conjunctival injection, periorbital swelling ENT exam: Present: normal exam, mucous membranes moist Neck exam: Present: normal inspection. Absent: tenderness, meningismus, lymphadenopathy Respiratory exam: Present: respiratory distress, wheezes, accessory muscle use, decreased breath sounds. Absent: rales, rhonchi, stridor Cardiovascular Exam: Present: normal rhythm, tachycardia, normal heart sounds. Absent: systolic murmur, diastolic murmur, rubs, gallop, clicks GI/Abdominal exam: Present: soft, normal bowel sounds. Absent: distended, tenderness, guarding, rebound, rigid Extremities exam: Present: normal inspection, full ROM, normal capillary refill. Absent: tenderness, pedal edema, joint swelling, calf tenderness Back exam: Present: normal inspection Neurological exam: Present: alert, oriented X3, CN II-XII intact Psychiatric exam: Present: normal affect, normal mood Skin exam: Present: warm, dry, intact, normal color. Absent: rash Course Vital Signs 02/02/18 02/02/18 02/02/18 20:26 21:00 21:08 Temperature 98.5 F Pulse Rate 114 H 100 96 Respiratory 20 Rate Blood Pressure 119/74 O2 Sat by Pulse 93 L Oximetry 02/02/18 02/02/18 02/02/18 22:29 22:38 22:50 Temperature 99.3 F Pulse Rate 85 83 84 Respiratory 28 H 18 18 Rate Blood Pressure 165/85 O2 Sat by Pulse 93 L Oximetry 02/02/18 23:12 Temperature Pulse Rate 89 Respiratory 18 Rate Blood Pressure 185/78 O2 Sat by Pulse 92 L Oximetry - Reevaluation(s) Reevaluation #1: 02/02/18 23:38 Patient still has significant dyspnea. Medical Decision Making - Medical Decision Making Patient was reevaluated again and still showed evidence of dyspnea with diminished breath sounds and wheezing. She will be admitted I did discuss this with the patient and family members or present. The presentation consistent with a COPD exacerbation patient has remained afebrile - Lab Data Result diagrams: 02/02/18 20:51 02/02/18 20:51 Lab Results 02/02/18 02/02/18 02/02/18 Range/Units 20:51 20:51 20:51 WBC 9.0 (3.8-10.6) k/uL RBC 4.77 (3.80-5.40) m/uL Hgb 14.5 (11.4-16.0) gm/dL Hct 42.1 (34.0-46.0) % MCV 88.2 (80.0-100.0) fL MCH 30.4 (25.0-35.0) pg MCHC 34.5 (31.0-37.0) g/dL RDW 14.3 (11.5-15.5) % Plt Count 244 (150-450) k/uL Neutrophils % 67 % Lymphocytes % 19 % Monocytes % 9 % Eosinophils % 2 % Basophils % 1 % Neutrophils # 6.0 (1.3-7.7) k/uL Lymphocytes # 1.7 (1.0-4.8) k/uL Monocytes # 0.8 (0-1.0) k/uL Eosinophils # 0.1 (0-0.7) k/uL Basophils # 0.1 (0-0.2) k/uL PT (9.0-12.0) sec INR (<1.2) APTT (22.0-30.0) sec D-Dimer (<0.60) mg/L FEU Sodium 143 (137-145) mmol/L Potassium 4.0 (3.5-5.1) mmol/L Chloride 105 (98-107) mmol/L Carbon Dioxide 24 (22-30) mmol/L Anion Gap 14 mmol/L BUN 14 (7-17) mg/dL Creatinine 0.60 (0.52-1.04) mg/dL Est GFR (CKD-EPI)AfAm >90 (>60 ml/min/1.73 sqM) Est GFR (CKD-EPI)NonAf >90 (>60 ml/min/1.73 sqM) Glucose 121 H (74-99) mg/dL Calcium 10.1 (8.4-10.2) mg/dL Magnesium 1.8 (1.6-2.3) mg/dL Total Bilirubin 0.7 (0.2-1.3) mg/dL AST 33 (14-36) U/L ALT 31 (9-52) U/L Alkaline Phosphatase 99 (38-126) U/L Total Creatine Kinase 194 H (30-135) U/L CK-MB (CK-2) 0.6 (0.0-2.4) ng/mL CK-MB (CK-2) Rel Index 0.3 Troponin I <0.012 (0.000-0.034) ng/mL NT-Pro-B Natriuret Pep pg/mL Total Protein 7.2 (6.3-8.2) g/dL Albumin 4.2 (3.5-5.0) g/dL Influenza Type A RNA (Not Detectd) Influenza Type B (PCR) (Not Detectd) 02/02/18 02/02/18 02/02/18 Range/Units 20:51 20:51 20:51 WBC (3.8-10.6) k/uL RBC (3.80-5.40) m/uL Hgb (11.4-16.0) gm/dL Hct (34.0-46.0) % MCV (80.0-100.0) fL MCH (25.0-35.0) pg MCHC (31.0-37.0) g/dL RDW (11.5-15.5) % Plt Count (150-450) k/uL Neutrophils % % Lymphocytes % % Monocytes % % Eosinophils % % Basophils % % Neutrophils # (1.3-7.7) k/uL Lymphocytes # (1.0-4.8) k/uL Monocytes # (0-1.0) k/uL Eosinophils # (0-0.7) k/uL Basophils # (0-0.2) k/uL PT 10.0 (9.0-12.0) sec INR 1.0 (<1.2) APTT 20.7 L (22.0-30.0) sec D-Dimer 0.53 (<0.60) mg/L FEU Sodium (137-145) mmol/L Potassium (3.5-5.1) mmol/L Chloride (98-107) mmol/L Carbon Dioxide (22-30) mmol/L Anion Gap mmol/L BUN (7-17) mg/dL Creatinine (0.52-1.04) mg/dL Est GFR (CKD-EPI)AfAm (>60 ml/min/1.73 sqM) Est GFR (CKD-EPI)NonAf (>60 ml/min/1.73 sqM) Glucose (74-99) mg/dL Calcium (8.4-10.2) mg/dL Magnesium (1.6-2.3) mg/dL Total Bilirubin (0.2-1.3) mg/dL AST (14-36) U/L ALT (9-52) U/L Alkaline Phosphatase (38-126) U/L Total Creatine Kinase (30-135) U/L CK-MB (CK-2) (0.0-2.4) ng/mL CK-MB (CK-2) Rel Index Troponin I (0.000-0.034) ng/mL NT-Pro-B Natriuret Pep 34 pg/mL Total Protein (6.3-8.2) g/dL Albumin (3.5-5.0) g/dL Influenza Type A RNA Not Detected (Not Detectd) Influenza Type B (PCR) Not Detected (Not Detectd) - EKG Data -: EKG Interpreted by Ny EKG shows normal: sinus rhythm (Normal sinus rhythm rate of 94. Interval 146 QRS duration 58 daily since QTC of 320/410 st-t wave changes. Some artifact is present.) - Radiology Data Radiology results: report reviewed (I did review the imaging and report no acute findings.), image reviewed Critical Care Time Critical Care Time: Yes Critical Care Time: 34 minutes which includes initial presentation with history physical labs x- rays several reevaluation the patient discussed with the patient family regarding findings. Discussion with the admitting physician admission orders and documentation of the above. Disposition Clinical Impression: Acute exacerbation of chronic obstructive airways disease, Acute respiratory distress Disposition: ADMITTED IP TO THIS HOSP Condition: Stable Referrals: Zeinab Pimentel MD [Primary Care Provider] - 1-2 days
[2018-02-02 21:02] LABS: Basophils # (A) 0.1 k/uL (0-0.2); Basophils % (A) 1 %; Eosinophils # (A) 0.1 k/uL (0-0.7); Eosinophils % (A) 2 %; HCT 42.1 % (34.0-46.0); HGB 14.5 gm/dL (11.4-16.0); Lymphocytes # (A) 1.7 k/uL (1.0-4.8); Lymphocytes % (A) 19 %; MCH 30.4 pg (25.0-35.0); MCHC 34.5 g/dL (31.0-37.0); MCV 88.2 fL (80.0-100.0); Mean Platelet Volume 8.3; Monocytes # (A) 0.8 k/uL (0-1.0); Monocytes % (A) 9 %; Neutrophils % (A) 67 %; Platelet Count 244 k/uL (150-450); RBC 4.77 m/uL (3.80-5.40); RDW 14.3 % (11.5-15.5)
[2018-02-02 21:13] LABS: ALT 31 U/L (9-52); AST 33 U/L (14-36); Albumin 4.2 g/dL (3.5-5.0); Alkaline Phosphatase 99 U/L (38-126); Anion Gap 14 mmol/L; Blood Urea Nitrogen 14 mg/dL (7-17); Calcium 10.1 mg/dL (8.4-10.2); Carbon Dioxide 24 mmol/L (22-30); Chloride 105 mmol/L (98-107); Glucose 121 mg/dL (74-99); Magnesium 1.8 mg/dL (1.6-2.3); Sodium 143 mmol/L (137-145); Total Bilirubin 0.7 mg/dL (0.2-1.3); Total Protein 7.2 g/dL (6.3-8.2)
[2018-02-02 21:21] LABS: Creatine Kinase 194 U/L (30-135)
[2018-02-02 21:31] LABS: D-Dimer 0.53 mg/L FEU (<0.60)
[2018-02-02 21:35] LABS: Creatine Kinase MB 0.6 ng/mL (0.0-2.4); Troponin I <0.012 ng/mL (0.000-0.034)
[2018-02-02 21:43] LABS: Partial Thromboplastin Time 20.7 sec (22.0-30.0)
--- NOTE | 2018-02-02 21:46 | XR ---
EXAMINATION TYPE: XR chest 2V DATE OF EXAM: 02/02/2018 COMPARISON: 01/31/2017 HISTORY: Difficulty breathing. Short of breath TECHNIQUE: Frontal and lateral views of the chest are obtained. FINDINGS: There is no heart failure nor confluent pneumonic infiltrate. Costophrenic angles are puja r. There are chest leads. There are small calcified granulomata in both lungs. IMPRESSION: No active cardiopulmonary disease. Old granulomatous disease. Normal heart. No change.
[2018-02-03] MEDS: IPRATROPIUM-ALBUTEROL 3 ML NEB INHALATION SCH ×6 (00:25→19:33)
[2018-02-03] MEDS: SODIUM CHLORIDE 0.9% 1,000 ML IV SCH ×2 (00:37→08:06)
[2018-02-03 01:04] VITALS: BMI 26.6
[2018-02-03] MEDS: methylPREDNISolone SOD SUCCI 125 MG/2 ML VIAL IV SCH ×4 (05:10→23:27)
[2018-02-03 07:01] LABS: Glucose,Whole Blood 252 mg/dL (75-99)
[2018-02-03] MEDS: INSULIN ASPART 100 UNIT/ML 1 ML 10 ML VIAL SQ SCH ×4 (08:04→20:47)
[2018-02-03] MEDS: metFORMIN 500 MG TAB PO SCH ×2 (08:05→20:47)
[2018-02-03] MEDS: ZINC SULFATE 220 MG CAP PO SCH (08:05)
[2018-02-03] MEDS: MULTIVITAMINS, THERA 1 EACH TAB PO SCH (08:05)
[2018-02-03] MEDS: CHOLECALCIFEROL 1,000 UNIT TAB PO SCH (08:05)
--- NOTE | 2018-02-03 10:16 | P.HPIM ---
History of Present Illness H&P Date: 02/03/18 Chief Complaint: Cough with shortness of breath This is a 72-year-old female, patient of Dr. Gonzalez. She has a known past medical history of COPD, nicotine dependence, hyperlipidemia, hypertension, diabetes mellitus and dementia. Patient presents to the emergency room with complaints of cough and shortness of breath with congestion and rhinorrhea. Patient reports that she has had symptoms for about 3-4 days. She reports the cough is productive with clear sputum. She has also had some pleuritic chest pain with her cough. Patient was started on IV steroids and bronchodilators in the emergency room. Pulmonary will be consulted. Chest x-ray shows no acute changes but did show an old granulomatous disease. D-dimer normal at 0.53. Influenza screen negative and troponin negative. EKG showing a normal sinus rhythm. Patient denies any fever, chills, sweats. Denies any nausea or vomiting. Denies any bowel movement changes or urinary symptoms. Patient reports that she does not feel much better since starting steroids and nebulizer treatments. We will start Rocephin and azithromycin for an acute bronchitis. Review of Systems Please refer to HPI otherwise unremarkable Past Medical History Past Medical History: COPD, Dementia, Diabetes Mellitus, Hyperlipidemia, Hypertension, Memory Impairment, Pneumonia Additional Past Medical History / Comment(s): NIDDM, tracheobronchitis, memory problems. History of Any Multi-Drug Resistant Organisms: None Reported Past Surgical History: Hysterectomy, Orthopedic Surgery, Tonsillectomy Additional Past Surgical History / Comment(s): d&c, left knee arthroscopy, R eye cataract removal. Past Anesthesia/Blood Transfusion Reactions: No Reported Reaction Past Psychological History: No Psychological Hx Reported Additional Psychological History / Comment(s): Pt lives alone. She is independent. She uses no assistive device. She drives. She has a glucometer. Smoking Status: Current every day smoker Past Alcohol Use History: Occasional Additional Past Alcohol Use History / Comment(s): Pt states she smokes between -11/25 ppd. She has been smoking for about 51 yrs. Past Drug Use History: None Reported - Past Family History Father Family Medical History: Congestive Heart Failure (CHF), Myocardial Infarction ( [place]) Additional Family Medical History / Comment(s): Father of [place]/ CHF at age 40 or 41 yrs. Mother Family Medical History: Congestive Heart Failure (CHF), Myocardial Infarction ( [place]) Additional Family Medical History / Comment(s): Mother at age 90 yrs. Medications and Allergies Home Medications Medication Instructions Recorded Confirmed Type metFORMIN HCL [Glucophage] 500 mg PO BID 04/09/14 02/02/18 History Multivitamins, Thera [Multivitamin 1 tab PO DAILY 01/30/17 02/02/18 History (formulary)] [place]-3 Fatty Acids/Fish Oil [Fish 1 cap PO HS 01/30/17 02/02/18 History Oil 1,000 mg Softgel] Albuterol Inhaler [Ventolin Hfa 2 puff INHALATION RT-Q6H PRN 02/02/18 02/02/18 History Inhaler] Atorvastatin [Lipitor] 80 mg PO HS 02/02/18 02/02/18 History Cholecalciferol [Vitamin D3] 1,000 unit PO DAILY 02/02/18 02/02/18 History Cranberry Fruit Concentrate 450 mg PO HS 02/02/18 02/02/18 History [Cranberry] Memantine HCl [Namenda Xr] 7 mg PO HS 02/02/18 02/02/18 History Metoprolol Succinate (ER) [Toprol 50 mg PO HS 02/02/18 02/02/18 History XL] Zinc 50 mg PO DAILY 02/02/18 02/02/18 History Allergies Allergy/AdvReac Type Severity Reaction Status Date / Time No Known Allergies Allergy Verified 02/02/18 21:14 Physical Exam Vitals: Vital Signs Temp Pulse Pulse Resp BP BP Pulse Ox 02/03/18 09:15 80 02/03/18 09:01 78 02/03/18 07:00 97.6 F 75 18 132/63 93 L 02/03/18 05:59 84 02/03/18 05:52 84 02/03/18 01:03 94 20 02/03/18 00:41 98.3 F 94 134/69 93 L 02/03/18 00:17 98.9 F 66 25 H 134/84 98 02/03/18 00:16 98.3 F 93 20 94 L 02/02/18 23:12 89 18 185/78 92 L 02/02/18 22:50 84 18 02/02/18 22:38 83 18 02/02/18 22:29 99.3 F 85 28 H 165/85 93 L 02/02/18 21:08 96 02/02/18 21:00 100 02/02/18 20:26 98.5 F 114 H 20 119/74 93 L Intake and Output 02/02/18 02/03/18 02/03/18 22:59 06:59 14:59 Intake Total 600 Balance 600 Intake: Intake, IV Titration 600 Amount Sodium Chloride 0.9% 1, 600 000 ml @ 100 mls/hr IV . Q10H [facility] Rx#:[id number] Other: Voiding Method Toilet Toilet # Voids 1 Weight 74.843 kg 74.843 kg Head normocephalic Neck supple Lungs wheezing with coarse breath sounds noted bilaterally Heart regular rate and rhythm S1-S2, no rub or gallop Abdomen is soft nontender nondistended positive bowel sounds no hepatosplenomegaly Extremities no edema Neuro alert and orientated to 3 Results CBC & Chem 7: 02/02/18 20:51 02/02/18 20:51 Labs: Abnormal Lab Results - Last 24 Hours (Table) 02/02/18 02/02/18 02/02/18 Range/Units 20:51 20:51 20:51 APTT 20.7 L (22.0-30.0) sec Glucose 121 H (74-99) mg/dL POC Glucose (mg/dL) (75-99) mg/dL Total Creatine Kinase 194 H (30-135) U/L 02/03/18 Range/Units 07:00 APTT (22.0-30.0) sec Glucose (74-99) mg/dL POC Glucose (mg/dL) 252 H (75-99) mg/dL Total Creatine Kinase (30-135) U/L Thrombosis Risk Factor Assmnt - Choose All That Apply Any of the Below Risk Factors Present?: No Other Risk Factors: Yes Each Risk Factor Represents 2 Points: Age 61-74 years Thrombosis Risk Factor Assessment Total Risk Factor Score: 2 Thrombosis Risk Factor Assessment Level: Low Risk Assessment and Plan Assessment: 1. Acute COPD exacerbation: Continue IV Solu-Medrol and bronchodilators. Pulmonary service consulted 2. Acute tracheobronchitis: No evidence pneumonia on chest x-ray. Cough is productive. Check sputum culture. Start azithromycin and Rocephin 3. Nicotine dependence: Discussed smoking cessation. He smokes about half a pack a day. Refuses nicotine patch at this time 4. Hyperlipidemia: Continue Lipitor 5. Essential hypertension continue metoprolol 6. Diabetes mellitus type 2: Resume metformin and sliding scale coverage 7. Dementia continue Namenda GI prophylaxis Pepcid and DVT prophylaxis Lovenox Time with Patient: Greater than 30 (Greater than 50% of the total time spent in counseling and coordination of care.I performed an examination of the patient and discussed their management with the physician Broke Worker. I have reviewed the Physician Broke Worker's notes and agree with the documented findings and plan of care)
[2018-02-03] MEDS: ENOXAPARIN 40 MG/0.4 ML SYRINGE SQ SCH (11:27)
[2018-02-03] MEDS: FAMOTIDINE 20 MG TAB PO SCH (11:27)
[2018-02-03] MEDS: AZITHROMYCIN 500 MG in SODIUM CHLORIDE 0.9% 250 ML IVPB SCH (11:27)
[2018-02-03] MEDS: cefTRIAXone IN SWFI 1,000 MG/10 ML SYRINGE IVP SCH (11:27)
[2018-02-03 11:38] LABS: Glucose,Whole Blood 242 mg/dL (75-99)
--- NOTE | 2018-02-03 12:11 | P.CNPUL ---
History of Present Illness Consult date: 02/03/18 Requesting physician: Soledad Alvarez Reason for consult: COPD Chief complaint: shortness of breath History of present illness: This is a 72-year-old female patient who came into the emergency room with 3-4 days of progressive shortness of breath and a congested cough with clear sputum. She has also had some pleuritic chest pain with coughing. She denies any home oxygen use or CPAP use. Patient states she was taking nebulizer treatments at home prior to coming in however they were not helping much. She continues to complain of shortness of breath with exertion and activity. Has an audible wheeze. She denies any fevers chills or night sweats. The patient did have an influenza swab that was negative. Her chest x-ray showed no acute changes and old granulmatous disease. Patient was started on IV steroids and bronchodilators and antibiotics and admitted to the hospital for further treatment. Of note the patient is a current smoker and smokes approximately half a pack to 1 pack per day for over 50 years. Review of Systems 14 point review of systems was completed and is negative unless noted above in the HPI. Past Medical History Past Medical History: COPD, Dementia, Diabetes Mellitus, Hyperlipidemia, Hypertension, Memory Impairment, Pneumonia Additional Past Medical History / Comment(s): NIDDM, tracheobronchitis, memory problems. History of Any Multi-Drug Resistant Organisms: None Reported Past Surgical History: Hysterectomy, Orthopedic Surgery, Tonsillectomy Additional Past Surgical History / Comment(s): d&c, left knee arthroscopy, R eye cataract removal. Past Anesthesia/Blood Transfusion Reactions: No Reported Reaction Past Psychological History: No Psychological Hx Reported Additional Psychological History / Comment(s): Pt lives alone. She is independent. She uses no assistive device. She drives. She has a glucometer. Smoking Status: Current every day smoker Past Alcohol Use History: Occasional Additional Past Alcohol Use History / Comment(s): Pt states she smokes between -11/25 ppd. She has been smoking for about 51 yrs. Past Drug Use History: None Reported - Past Family History Father Family Medical History: Congestive Heart Failure (CHF), Myocardial Infarction ( [place]) Additional Family Medical History / Comment(s): Father of [place]/ CHF at age 40 or 41 yrs. Mother Family Medical History: Congestive Heart Failure (CHF), Myocardial Infarction ( [place]) Additional Family Medical History / Comment(s): Mother at age 90 yrs. Medications and Allergies Home Medications Medication Instructions Recorded Confirmed Type metFORMIN HCL [Glucophage] 500 mg PO BID 04/09/14 02/02/18 History Multivitamins, Thera [Multivitamin 1 tab PO DAILY 01/30/17 02/02/18 History (formulary)] [place]-3 Fatty Acids/Fish Oil [Fish 1 cap PO HS 01/30/17 02/02/18 History Oil 1,000 mg Softgel] Albuterol Inhaler [Ventolin Hfa 2 puff INHALATION RT-Q6H PRN 02/02/18 02/02/18 History Inhaler] Atorvastatin [Lipitor] 80 mg PO HS 02/02/18 02/02/18 History Cholecalciferol [Vitamin D3] 1,000 unit PO DAILY 02/02/18 02/02/18 History Cranberry Fruit Concentrate 450 mg PO HS 02/02/18 02/02/18 History [Cranberry] Memantine HCl [Namenda Xr] 7 mg PO HS 02/02/18 02/02/18 History Metoprolol Succinate (ER) [Toprol 50 mg PO HS 02/02/18 02/02/18 History XL] Zinc 50 mg PO DAILY 02/02/18 02/02/18 History Allergies Allergy/AdvReac Type Severity Reaction Status Date / Time No Known Allergies Allergy Verified 02/02/18 21:14 Physical Exam Vitals: Vital Signs Temp Pulse Pulse Resp BP BP Pulse Ox 02/03/18 09:15 80 02/03/18 09:01 78 02/03/18 07:00 97.6 F 75 18 132/63 93 L 02/03/18 05:59 84 02/03/18 05:52 84 02/03/18 01:03 94 20 02/03/18 00:41 98.3 F 94 134/69 93 L 02/03/18 00:17 98.9 F 66 25 H 134/84 98 02/03/18 00:16 98.3 F 93 20 94 L 02/02/18 23:12 89 18 185/78 92 L 02/02/18 22:50 84 18 02/02/18 22:38 83 18 02/02/18 22:29 99.3 F 85 28 H 165/85 93 L 02/02/18 21:08 96 02/02/18 21:00 100 02/02/18 20:26 98.5 F 114 H 20 119/74 93 L Intake and Output 02/02/18 02/03/18 02/03/18 22:59 06:59 14:59 Intake Total 600 Balance 600 Intake: Intake, IV Titration 600 Amount Sodium Chloride 0.9% 1, 600 000 ml @ 100 mls/hr IV . Q10H [facility] Rx#:[id number] Other: Voiding Method Toilet Toilet # Voids 1 Weight 74.843 kg 74.843 kg GENERAL EXAM: Alert, comfortable in no apparent distress. HEAD: Normocephalic. EYES: Normal reaction of pupils, equal size. NOSE: Clear with pink turbinates. THROAT: No erythema or exudates. NECK: No masses, no JVD. CHEST: No chest wall deformity. LUNGS: Lungs noted to be coarse bilaterally with inspiratory and expiratory wheezing. Bases diminished CVS: S1 and S2 normal with no audible mumurs, regular rhythm. ABDOMEN: No hepatosplenomegaly, normal bowel sounds, no guarding or rigidity. EXTREMITIES: No edema noted, pedal pulses palpable. CENTRAL NERVOUS SYSTEM: No focal deficits, tone is normal in all 4 extremities. Results - Laboratory Findings CBC and BMP: 02/02/18 20:51 02/02/18 20:51 PT/INR, D-dimer PT 10.0 sec (9.0-12.0) 02/02/18 20:51 INR 1.0 (<1.2) 02/02/18 20:51 D-Dimer 0.53 mg/L FEU (<0.60) 02/02/18 20:51 Abnormal lab findings: Abnormal Labs 02/02/18 02/02/18 02/02/18 20:51 20:51 20:51 APTT 20.7 L Glucose 121 H POC Glucose (mg/dL) Total Creatine Kinase 194 H 02/03/18 02/03/18 07:00 11:36 APTT Glucose POC Glucose (mg/dL) 252 H 242 H Total Creatine Kinase - Diagnostic Findings Chest x-ray: report reviewed, image reviewed Assessment and Plan Assessment: Assessment Acute exacerbation of COPD Acute tracheobronchitis Nicotine dependence Hypertension Diabetes mellitus type 2 Hyperlipidemia Plan Medications have been reviewed and will be continued as ordered. Add Pulmicort to her current nebulizer treatments. Add mucinex. Obtain sputum culture. Continue with antibiotics and IV steroids. Continue with pulmonary hygiene, coughing and deep breathing exercises, and supportive care. Supplemental oxygen to maintain oxygen saturations of 92% or better. Continue nebulizer treatments. Initiate and encourage incentive spirometer. GI and DVT prophylaxis. We will continue to monitor labs/results and adjust treatment as necessary. Further recommendations pending. I performed an examination of the patient and discussed their management with the nurse practitioner. I have reviewed the nurse practitioner's note and agree with the documented findings and plan of care.
[2018-02-03] MEDS: guaiFENesin 600 MG TABLET.ER PO SCH ×2 (12:52→20:46)
[2018-02-03 16:31] LABS: Glucose,Whole Blood 250 mg/dL (75-99)
[2018-02-03] MEDS: BUDESONIDE 1 MG/2 ML NEBU INHALATION SCH (19:33)
[2018-02-03 20:34] LABS: Glucose,Whole Blood 284 mg/dL (75-99)
[2018-02-03] MEDS: ATORVASTATIN 80 MG TAB PO SCH (20:46)
[2018-02-03] MEDS: METOPROLOL SUCCINATE (ER) 50 MG TAB.ER.24H PO SCH (20:47)
[2018-02-03] MEDS: MEMANTINE 5 MG TAB PO SCH (20:47)
[2018-02-03] MEDS: NON-FORMULARY DRUG (Omega-3 Fatty Acids/Fish Oil [Fish Oil 1,000 Mg Softgel] 1 CAP) PO SCH (20:49)
[2018-02-04] MEDS: IPRATROPIUM-ALBUTEROL 3 ML NEB INHALATION SCH ×6 (00:34→20:37)
[2018-02-04] MEDS ORDERED: IPRATROPIUM-ALBUTEROL 3 ML NEB INHALATION PRN (04:46)
[2018-02-04] MEDS: methylPREDNISolone SOD SUCCI 125 MG/2 ML VIAL IV SCH ×4 (05:18→22:46)
[2018-02-04 07:18] LABS: Glucose,Whole Blood 218 mg/dL (75-99)
[2018-02-04] MEDS: BUDESONIDE 1 MG/2 ML NEBU INHALATION SCH ×2 (08:33→20:37)
[2018-02-04] MEDS: cefTRIAXone IN SWFI 1,000 MG/10 ML SYRINGE IVP SCH (08:47)
[2018-02-04] MEDS: AZITHROMYCIN 500 MG in SODIUM CHLORIDE 0.9% 250 ML IVPB SCH (08:47)
[2018-02-04] MEDS: INSULIN ASPART 100 UNIT/ML 1 ML 10 ML VIAL SQ SCH ×4 (08:51→22:47)
[2018-02-04] MEDS: guaiFENesin 600 MG TABLET.ER PO SCH ×2 (08:52→22:45)
[2018-02-04] MEDS: ENOXAPARIN 40 MG/0.4 ML SYRINGE SQ SCH (08:52)
[2018-02-04] MEDS: metFORMIN 500 MG TAB PO SCH ×2 (08:52→22:45)
[2018-02-04] MEDS: FAMOTIDINE 20 MG TAB PO SCH (08:53)
[2018-02-04] MEDS: ZINC SULFATE 220 MG CAP PO SCH (08:53)
[2018-02-04] MEDS: CHOLECALCIFEROL 1,000 UNIT TAB PO SCH (08:53)
[2018-02-04] MEDS: MULTIVITAMINS, THERA 1 EACH TAB PO SCH (08:53)
[2018-02-04 09:24] LABS: Basophils % (A) 0 %; Eosinophils % (A) 0 %; HGB 11.6 gm/dL (11.4-16.0); Hypochromasia Slight; Lymphocytes # (A) 1.4 k/uL (1.0-4.8); Lymphocytes % (A) 8 %; MCH 28.5 pg (25.0-35.0); MCHC 30.7 g/dL (31.0-37.0); MCV 92.9 fL (80.0-100.0); Mean Platelet Volume 9.2; Monocytes # (A) 0.7 k/uL (0-1.0); Monocytes % (A) 4 %; Neutrophils # (A) 16.7 k/uL (1.3-7.7); Neutrophils % (A) 88 %; Platelet Count 219 k/uL (150-450); RBC 4.09 m/uL (3.80-5.40); RDW 14.7 % (11.5-15.5)
[2018-02-04 09:39] LABS: ALT 29 U/L (9-52); AST 19 U/L (14-36); Albumin 3.5 g/dL (3.5-5.0); Alkaline Phosphatase 75 U/L (38-126); Anion Gap 12 mmol/L; Blood Urea Nitrogen 17 mg/dL (7-17); Calcium 9.5 mg/dL (8.4-10.2); Carbon Dioxide 24 mmol/L (22-30); Chloride 111 mmol/L (98-107); Glucose 262 mg/dL (74-99); Potassium 4.6 mmol/L (3.5-5.1); Sodium 147 mmol/L (137-145); Total Bilirubin 0.4 mg/dL (0.2-1.3); Total Protein 5.7 g/dL (6.3-8.2)
[2018-02-04 11:52] LABS: Glucose,Whole Blood 233 mg/dL (75-99)
--- NOTE | 2018-02-04 12:15 | P.PN ---
Subjective Progress Note Date: 02/04/18 This is a 72-year-old female, patient of Dr. Gonzalez. She has a known past medical history of COPD, nicotine dependence, hyperlipidemia, hypertension, diabetes mellitus and dementia. Patient presents to the emergency room with complaints of cough and shortness of breath with congestion and rhinorrhea. Patient reports that she has had symptoms for about 3-4 days. She reports the cough is productive with clear sputum. She has also had some pleuritic chest pain with her cough. Patient was started on IV steroids and bronchodilators in the emergency room. Pulmonary will be consulted. Chest x-ray shows no acute changes but did show an old granulomatous disease. D-dimer normal at 0.53. Influenza screen negative and troponin negative. EKG showing a normal sinus rhythm. Patient denies any fever, chills, sweats. Denies any nausea or vomiting. Denies any bowel movement changes or urinary symptoms. Patient reports that she does not feel much better since starting steroids and nebulizer treatments. We will start Rocephin and azithromycin for an acute bronchitis. On 02/04/2018 Patient has complaints of cough and shortness of breath with congestion, otherwise she denies any complaint. maintained on IV Solu-Medrol and bronchodilators. smoking cessation discussed Objective - Vital Signs Vital signs: Vital Signs Temp 98.3 F 02/04/18 07:00 Pulse 88 02/04/18 08:49 Resp 18 02/04/18 07:00 BP 117/74 02/04/18 07:00 Pulse Ox 91 L 02/04/18 07:00 Intake & Output 02/03/18 02/04/18 02/04/18 18:59 06:59 18:59 Intake Total 950 800 Balance 950 800 Intake: IV 800 Sodium Chloride 0.9% 1, 800 000 ml @ 100 mls/hr IV . Q10H [facility] Rx#:[id number] Intake, IV Titration 950 Amount Azithromycin 500 mg In 250 Sodium Chloride 0.9% 250 ml @ 125 mls/hr IVPB DAILY [facility] Rx#:[id number] Sodium Chloride 0.9% 1, 700 000 ml @ 100 mls/hr IV . Q10H [facility] Rx#:[id number] Other: Voiding Method Toilet Toilet # Voids 2 - Exam Head normocephalic and atraumatic Neck supple no JVD no goiter Lungs wheezing with coarse breath sounds noted bilaterally Heart regular rate and rhythm S1-S2, no rub or gallop Abdomen is soft nontender nondistended positive bowel sounds no hepatosplenomegaly Extremities no edema Neuro alert and orientated to 3 - Labs CBC & Chem 7: 02/04/18 08:40 02/04/18 08:40 Labs: Abnormal Lab Results - Last 24 Hours (Table) 02/03/18 02/03/18 02/04/18 Range/Units 16:29 20:32 07:03 WBC (3.8-10.6) k/uL MCHC (31.0-37.0) g/dL Neutrophils # (1.3-7.7) k/uL Sodium (137-145) mmol/L Chloride (98-107) mmol/L Glucose (74-99) mg/dL POC Glucose (mg/dL) 250 H 284 H 218 H (75-99) mg/dL Total Protein (6.3-8.2) g/dL 02/04/18 02/04/18 02/04/18 Range/Units 08:40 08:40 11:31 WBC 19.0 H (3.8-10.6) k/uL MCHC 30.7 L (31.0-37.0) g/dL Neutrophils # 16.7 H (1.3-7.7) k/uL Sodium 147 H (137-145) mmol/L Chloride 111 H (98-107) mmol/L Glucose 262 H (74-99) mg/dL POC Glucose (mg/dL) 233 H (75-99) mg/dL Total Protein 5.7 L (6.3-8.2) g/dL Microbiology - Last 24 Hours (Table) 02/02/18 20:51 Blood Culture - Preliminary Blood No Growth after 24 hours Assessment and Plan Plan: 1. Acute COPD exacerbation: Continue IV Solu-Medrol and bronchodilators. Pulmonary service consulted, continue current care 2. Acute tracheobronchitis: No evidence pneumonia on chest x-ray. Cough is productive. Check sputum culture. Start azithromycin and Rocephin 3. Nicotine dependence: Discussed smoking cessation. He smokes about half a pack a day. Refuses nicotine patch at this time 4. Hyperlipidemia: Continue Lipitor 5. Essential hypertension continue metoprolol 6. Diabetes mellitus type 2: Resume metformin and sliding scale coverage 7. Dementia continue Namenda GI prophylaxis Pepcid and DVT prophylaxis Lovenox
--- NOTE | 2018-02-04 14:15 | P.PN ---
Subjective Progress Note Date: 02/04/18 02/03/18- This is a 72-year-old female patient who came into the emergency room with 3-4 days of progressive shortness of breath and a congested cough with clear sputum. She has also had some pleuritic chest pain with coughing. She denies any home oxygen use or CPAP use. Patient states she was taking nebulizer treatments at home prior to coming in however they were not helping much. She continues to complain of shortness of breath with exertion and activity. Has an audible wheeze. She denies any fevers chills or night sweats. The patient did have an influenza swab that was negative. Her chest x- ray showed no acute changes and old granulmatous disease. Patient was started on IV steroids and bronchodilators and antibiotics and admitted to the hospital for further treatment. Of note the patient is a current smoker and smokes approximately half a pack to 1 pack per day for over 50 years. 02/04/18- patient is being seen examined and evaluated today on rounds. She is resting up in bed on room air. She continues to have shortness of breath cough and congestion. She states she has had some small amounts of yellow phlegm. She continues on antibiotics and steroids as well as nebulizer treatments. She feels her breathing is somewhat improving today. Her chest x-ray was negative. Objective - Vital Signs Vital signs: Vital Signs Temp 98.3 F 02/04/18 07:00 Pulse 85 02/04/18 12:54 Resp 18 02/04/18 07:00 BP 117/74 02/04/18 07:00 Pulse Ox 91 L 02/04/18 07:00 Intake & Output 02/03/18 02/04/18 02/04/18 18:59 06:59 18:59 Intake Total 950 800 Balance 950 800 Intake: IV 800 Sodium Chloride 0.9% 1, 800 000 ml @ 100 mls/hr IV . Q10H [facility] Rx#:[id number] Intake, IV Titration 950 Amount Azithromycin 500 mg In 250 Sodium Chloride 0.9% 250 ml @ 125 mls/hr IVPB DAILY [facility] Rx#:[id number] Sodium Chloride 0.9% 1, 700 000 ml @ 100 mls/hr IV . Q10H [facility] Rx#:[id number] Other: Voiding Method Toilet Toilet # Voids 2 - Exam GENERAL EXAM: Alert, comfortable in no apparent distress. HEAD: Normocephalic. EYES: Normal reaction of pupils, equal size. NOSE: Clear with pink turbinates. THROAT: No erythema or exudates. NECK: No masses, no JVD. CHEST: No chest wall deformity. LUNGS: Lungs noted to be coarse bilaterally with inspiratory and expiratory wheezing. Bases diminished CVS: S1 and S2 normal with no audible mumurs, regular rhythm. ABDOMEN: No hepatosplenomegaly, normal bowel sounds, no guarding or rigidity. EXTREMITIES: No edema noted, pedal pulses palpable. CENTRAL NERVOUS SYSTEM: No focal deficits, tone is normal in all 4 extremities. - Labs CBC & Chem 7: 02/04/18 08:40 02/04/18 08:40 Labs: Abnormal Lab Results - Last 24 Hours (Table) 02/03/18 02/03/18 02/04/18 Range/Units 16:29 20:32 07:03 WBC (3.8-10.6) k/uL MCHC (31.0-37.0) g/dL Neutrophils # (1.3-7.7) k/uL Sodium (137-145) mmol/L Chloride (98-107) mmol/L Glucose (74-99) mg/dL POC Glucose (mg/dL) 250 H 284 H 218 H (75-99) mg/dL Total Protein (6.3-8.2) g/dL 02/04/18 02/04/18 02/04/18 Range/Units 08:40 08:40 11:31 WBC 19.0 H (3.8-10.6) k/uL MCHC 30.7 L (31.0-37.0) g/dL Neutrophils # 16.7 H (1.3-7.7) k/uL Sodium 147 H (137-145) mmol/L Chloride 111 H (98-107) mmol/L Glucose 262 H (74-99) mg/dL POC Glucose (mg/dL) 233 H (75-99) mg/dL Total Protein 5.7 L (6.3-8.2) g/dL Microbiology - Last 24 Hours (Table) 02/02/18 20:51 Blood Culture - Preliminary Blood No Growth after 24 hours Assessment and Plan Assessment: Assessment Acute exacerbation of COPD Acute tracheobronchitis Nicotine dependence Hypertension Diabetes mellitus type 2 Hyperlipidemia Plan Medications have been reviewed and will be continued as ordered. Continue with her current nebulizer treatments. mucinex. Obtain sputum culture. Continue with antibiotics and IV steroids. Continue with pulmonary hygiene, coughing and deep breathing exercises, and supportive care. Supplemental oxygen to maintain oxygen saturations of 92% or better. Continue nebulizer treatments. Smoking cessation discussed. Initiate and encourage incentive spirometer. GI and DVT prophylaxis. We will continue to monitor labs/results and adjust treatment as necessary. Further recommendations pending. I performed an examination of the patient and discussed their management with the nurse practitioner. I have reviewed the nurse practitioner's note and agree with the documented findings and plan of care.
[2018-02-04 17:22] LABS: Glucose,Whole Blood 239 mg/dL (75-99)
[2018-02-04 20:33] LABS: Glucose,Whole Blood 312 mg/dL (75-99)
[2018-02-04] MEDS: MEMANTINE 5 MG TAB PO SCH (22:45)
[2018-02-04] MEDS: ATORVASTATIN 80 MG TAB PO SCH (22:45)
[2018-02-04] MEDS: NON-FORMULARY DRUG (Omega-3 Fatty Acids/Fish Oil [Fish Oil 1,000 Mg Softgel] 1 CAP) PO SCH (22:46)
[2018-02-04] MEDS: METOPROLOL SUCCINATE (ER) 50 MG TAB.ER.24H PO SCH (23:15)
[2018-02-05] MEDS: methylPREDNISolone SOD SUCCI 125 MG/2 ML VIAL IV SCH ×4 (05:45→17:35)
[2018-02-05 07:11] LABS: Glucose,Whole Blood 204 mg/dL (75-99)
[2018-02-05] MEDS: BUDESONIDE 1 MG/2 ML NEBU INHALATION SCH ×2 (07:32→19:43)
[2018-02-05] MEDS: IPRATROPIUM-ALBUTEROL 3 ML NEB INHALATION SCH ×4 (07:32→19:43)
[2018-02-05 08:16] LABS: Basophils % (A) 0 %; Eosinophils % (A) 0 %; HCT 37.3 % (34.0-46.0); Lymphocytes # (A) 1.2 k/uL (1.0-4.8); Lymphocytes % (A) 7 %; MCH 29.3 pg (25.0-35.0); MCHC 32.3 g/dL (31.0-37.0); MCV 90.8 fL (80.0-100.0); Mean Platelet Volume 8.3; Monocytes # (A) 0.5 k/uL (0-1.0); Monocytes % (A) 3 %; Neutrophils # (A) 14.8 k/uL (1.3-7.7); Neutrophils % (A) 89 %; Platelet Count 223 k/uL (150-450); RBC 4.11 m/uL (3.80-5.40); RDW 14.6 % (11.5-15.5); WBC 16.6 k/uL (3.8-10.6)
[2018-02-05 08:19] LABS: Albumin 3.4 g/dL (3.5-5.0); Glucose 215 mg/dL (74-99); Total Protein 5.9 g/dL (6.3-8.2)
[2018-02-05 08:20] LABS: ALT 34 U/L (9-52); AST 25 U/L (14-36); Alkaline Phosphatase 69 U/L (38-126); Anion Gap 11 mmol/L; Blood Urea Nitrogen 19 mg/dL (7-17); Calcium 9.6 mg/dL (8.4-10.2); Carbon Dioxide 25 mmol/L (22-30); Chloride 109 mmol/L (98-107); Potassium 4.3 mmol/L (3.5-5.1); Sodium 145 mmol/L (137-145); Total Bilirubin 0.3 mg/dL (0.2-1.3)
[2018-02-05] MEDS: FAMOTIDINE 20 MG TAB PO SCH (08:21)
[2018-02-05] MEDS: MULTIVITAMINS, THERA 1 EACH TAB PO SCH (08:21)
[2018-02-05] MEDS: guaiFENesin 600 MG TABLET.ER PO SCH ×2 (08:21→20:50)
[2018-02-05] MEDS: CHOLECALCIFEROL 1,000 UNIT TAB PO SCH (08:21)
[2018-02-05] MEDS: ZINC SULFATE 220 MG CAP PO SCH (08:21)
[2018-02-05] MEDS: ENOXAPARIN 40 MG/0.4 ML SYRINGE SQ SCH (08:21)
[2018-02-05] MEDS: AZITHROMYCIN 500 MG TAB PO SCH (08:21)
[2018-02-05] MEDS: metFORMIN 500 MG TAB PO SCH ×2 (08:21→20:51)
[2018-02-05] MEDS: cefTRIAXone IN SWFI 1,000 MG/10 ML SYRINGE IVP SCH (08:22)
[2018-02-05] MEDS: INSULIN ASPART 100 UNIT/ML 1 ML 10 ML VIAL SQ SCH ×4 (08:22→20:50)
[2018-02-05 11:55] LABS: Glucose,Whole Blood 201 mg/dL (75-99)
[2018-02-05] MEDS ORDERED: LACTULOSE 20 GM/30 ML CUP PO ONE (11:59)
--- NOTE | 2018-02-05 12:36 | P.PN ---
<Kaye Valencia E - Last Filed: 02/05/18 12:33> Subjective Progress Note Date: 02/05/18 02/03/18- This is a 72-year-old female patient who came into the emergency room with 3-4 days of progressive shortness of breath and a congested cough with clear sputum. She has also had some pleuritic chest pain with coughing. She denies any home oxygen use or CPAP use. Patient states she was taking nebulizer treatments at home prior to coming in however they were not helping much. She continues to complain of shortness of breath with exertion and activity. Has an audible wheeze. She denies any fevers chills or night sweats. The patient did have an influenza swab that was negative. Her chest x- ray showed no acute changes and old granulmatous disease. Patient was started on IV steroids and bronchodilators and antibiotics and admitted to the hospital for further treatment. Of note the patient is a current smoker and smokes approximately half a pack to 1 pack per day for over 50 years. 02/04/18- patient is being seen examined and evaluated today on rounds. She is resting up in bed on room air. She continues to have shortness of breath cough and congestion. She states she has had some small amounts of yellow phlegm. She continues on antibiotics and steroids as well as nebulizer treatments. She feels her breathing is somewhat improving today. Her chest x-ray was negative. 02/05/18- patient is being seen examined and evaluated today on rounds. She continues to have shortness of breath with exertion and wheezes. Patient has not been up ambulating much in the perez. We will add on therapies. She continues on 2 L of supplemental oxygen via nasal cannula. We will continue to try to wean that down. Continues on breathing treatments and steroids. I'll labs and reports have been reviewed. Objective - Vital Signs Vital signs: Vital Signs Temp 97.6 F 02/05/18 01:54 Pulse 88 02/05/18 11:23 Resp 18 02/05/18 07:00 BP 159/89 02/05/18 07:00 Pulse Ox 95 02/05/18 07:32 Intake & Output 02/04/18 02/05/18 02/05/18 18:59 06:59 18:59 Intake Total 250 700 Balance 250 700 Weight 74.843 kg Intake: Intake, IV Titration 250 Amount Azithromycin 500 mg In 250 Sodium Chloride 0.9% 250 ml @ 125 mls/hr IVPB DAILY [facility] Rx#:[id number] Oral 700 Other: Voiding Method Toilet Toilet # Voids 2 - Exam GENERAL EXAM: Alert, comfortable in no apparent distress. HEAD: Normocephalic. EYES: Normal reaction of pupils, equal size. NOSE: Clear with pink turbinates. THROAT: No erythema or exudates. NECK: No masses, no JVD. CHEST: No chest wall deformity. LUNGS: Lungs noted to be coarse bilaterally with inspiratory and expiratory wheezing. Bases diminished. Overall improving CVS: S1 and S2 normal with no audible mumurs, regular rhythm. ABDOMEN: No hepatosplenomegaly, normal bowel sounds, no guarding or rigidity. EXTREMITIES: No edema noted, pedal pulses palpable. CENTRAL NERVOUS SYSTEM: No focal deficits, tone is normal in all 4 extremities. - Labs CBC & Chem 7: 02/05/18 07:27 02/05/18 07:27 Labs: Abnormal Lab Results - Last 24 Hours (Table) 02/04/18 02/04/18 02/05/18 Range/Units 17:11 20:30 07:09 WBC (3.8-10.6) k/uL Neutrophils # (1.3-7.7) k/uL Chloride (98-107) mmol/L BUN (7-17) mg/dL Glucose (74-99) mg/dL POC Glucose (mg/dL) 239 H 312 H 204 H (75-99) mg/dL Total Protein (6.3-8.2) g/dL Albumin (3.5-5.0) g/dL 02/05/18 02/05/18 02/05/18 Range/Units 07:27 07:27 11:50 WBC 16.6 H (3.8-10.6) k/uL Neutrophils # 14.8 H (1.3-7.7) k/uL Chloride 109 H (98-107) mmol/L BUN 19 H (7-17) mg/dL Glucose 215 H (74-99) mg/dL POC Glucose (mg/dL) 201 H (75-99) mg/dL Total Protein 5.9 L (6.3-8.2) g/dL Albumin 3.4 L (3.5-5.0) g/dL Microbiology - Last 24 Hours (Table) 02/02/18 20:51 Blood Culture - Preliminary Blood No Growth after 48 hours Assessment and Plan Assessment: Assessment Acute exacerbation of COPD Acute tracheobronchitis Nicotine dependence Hypertension Diabetes mellitus type 2 Hyperlipidemia Plan Medications have been reviewed and will be continued as ordered. Continue with her current nebulizer treatments. mucinex. Obtain sputum culture. Continue with antibiotics and IV steroids. We will taper steroids. Continue with pulmonary hygiene, coughing and deep breathing exercises, and supportive care. Supplemental oxygen to maintain oxygen saturations of 92% or better. Continue nebulizer treatments. Smoking cessation discussed. Initiate and encourage incentive spirometer. GI and DVT prophylaxis. We will continue to monitor labs/ results and adjust treatment as necessary. Further recommendations pending. I performed an examination of the patient and discussed their management with the nurse practitioner. I have reviewed the nurse practitioner's note and agree with the documented findings and plan of care. <Heather Lopes A - Last Filed: 02/05/18 15:05> Objective - Vital Signs Vital signs: Vital Signs Temp 97.6 F 02/05/18 01:54 Pulse 88 02/05/18 11:23 Resp 18 02/05/18 07:00 BP 159/89 02/05/18 07:00 Pulse Ox 95 02/05/18 07:32 Intake & Output 02/04/18 02/05/18 02/05/18 18:59 06:59 18:59 Intake Total 250 700 Balance 250 700 Weight 74.843 kg Intake: Intake, IV Titration 250 Amount Azithromycin 500 mg In 250 Sodium Chloride 0.9% 250 ml @ 125 mls/hr IVPB DAILY [facility] Rx#:[id number] Oral 700 Other: Voiding Method Toilet Toilet # Voids 2 - Labs CBC & Chem 7: 02/05/18 07:27 02/05/18 07:27 Labs: Abnormal Lab Results - Last 24 Hours (Table) 02/04/18 02/04/18 02/05/18 Range/Units 17:11 20:30 07:09 WBC (3.8-10.6) k/uL Neutrophils # (1.3-7.7) k/uL Chloride (98-107) mmol/L BUN (7-17) mg/dL Glucose (74-99) mg/dL POC Glucose (mg/dL) 239 H 312 H 204 H (75-99) mg/dL Total Protein (6.3-8.2) g/dL Albumin (3.5-5.0) g/dL 02/05/18 02/05/18 02/05/18 Range/Units 07:27 07:27 11:50 WBC 16.6 H (3.8-10.6) k/uL Neutrophils # 14.8 H (1.3-7.7) k/uL Chloride 109 H (98-107) mmol/L BUN 19 H (7-17) mg/dL Glucose 215 H (74-99) mg/dL POC Glucose (mg/dL) 201 H (75-99) mg/dL Total Protein 5.9 L (6.3-8.2) g/dL Albumin 3.4 L (3.5-5.0) g/dL Microbiology - Last 24 Hours (Table) 02/02/18 20:51 Blood Culture - Preliminary Blood No Growth after 48 hours Assessment and Plan Assessment: Patient seen and examined. Patient is complaining of continued wheezing and shortness of breath. She is coughing up phlegm as well. She denies fevers and chills. The patient does have bilateral expiratory wheezing on physical exam. Recommend slow steroid taper. Continue bronchodilators and Pulmicort. Jaelyn. Heather Lopes DO
[2018-02-05] MEDS: DOCUSATE 100 MG CAP PO SCH ×2 (13:07→20:50)
--- NOTE | 2018-02-05 13:45 | P.PN ---
Subjective Progress Note Date: 02/05/18 This is a 72-year-old female, patient of Dr. Gonzalez. She has a known past medical history of COPD, nicotine dependence, hyperlipidemia, hypertension, diabetes mellitus and dementia. Patient presents to the emergency room with complaints of cough and shortness of breath with congestion and rhinorrhea. Patient reports that she has had symptoms for about 3-4 days. She reports the cough is productive with clear sputum. She has also had some pleuritic chest pain with her cough. Patient was started on IV steroids and bronchodilators in the emergency room. Pulmonary will be consulted. Chest x-ray shows no acute changes but did show an old granulomatous disease. D-dimer normal at 0.53. Influenza screen negative and troponin negative. EKG showing a normal sinus rhythm. Patient denies any fever, chills, sweats. Denies any nausea or vomiting. Denies any bowel movement changes or urinary symptoms. Patient reports that she does not feel much better since starting steroids and nebulizer treatments. We will start Rocephin and azithromycin for an acute bronchitis. 02/05/2018 patient reports she is feeling better. Still having some wheezing. She has been up and ambulating to the bathroom without shortness of breath. Cough is also improving. Pulmonary service is taping down the IV steroids. Patient is complaining of constipation Objective - Vital Signs Vital signs: Vital Signs Temp 97.6 F 02/05/18 01:54 Pulse 88 02/05/18 11:23 Resp 18 02/05/18 07:00 BP 159/89 02/05/18 07:00 Pulse Ox 95 02/05/18 07:32 Intake & Output 02/04/18 02/05/18 02/05/18 18:59 06:59 18:59 Intake Total 250 700 Balance 250 700 Weight 74.843 kg Intake: Intake, IV Titration 250 Amount Azithromycin 500 mg In 250 Sodium Chloride 0.9% 250 ml @ 125 mls/hr IVPB DAILY [facility] Rx#:[id number] Oral 700 Other: Voiding Method Toilet Toilet # Voids 2 - Exam Head normocephalic Neck supple Lungs wheezing but showing improvement Heart regular rate and rhythm S1-S2, no rub or gallop Abdomen is soft nontender nondistended positive bowel sounds no hepatosplenomegaly Extremities no edema Neuro alert and orientated to 3 - Labs CBC & Chem 7: 02/05/18 07:27 02/05/18 07:27 Labs: Abnormal Lab Results - Last 24 Hours (Table) 02/04/18 02/04/18 02/05/18 Range/Units 17:11 20:30 07:09 WBC (3.8-10.6) k/uL Neutrophils # (1.3-7.7) k/uL Chloride (98-107) mmol/L BUN (7-17) mg/dL Glucose (74-99) mg/dL POC Glucose (mg/dL) 239 H 312 H 204 H (75-99) mg/dL Total Protein (6.3-8.2) g/dL Albumin (3.5-5.0) g/dL 02/05/18 02/05/18 02/05/18 Range/Units 07:27 07:27 11:50 WBC 16.6 H (3.8-10.6) k/uL Neutrophils # 14.8 H (1.3-7.7) k/uL Chloride 109 H (98-107) mmol/L BUN 19 H (7-17) mg/dL Glucose 215 H (74-99) mg/dL POC Glucose (mg/dL) 201 H (75-99) mg/dL Total Protein 5.9 L (6.3-8.2) g/dL Albumin 3.4 L (3.5-5.0) g/dL Microbiology - Last 24 Hours (Table) 02/02/18 20:51 Blood Culture - Preliminary Blood No Growth after 48 hours Assessment and Plan Assessment: 1. Acute COPD exacerbation: Continue IV Solu-Medrol and bronchodilators. Case discussed with the pulmonary nurse practitioner. She is decreasing the IV Solu- Medrol to 40 every 8 hours 2. Acute tracheobronchitis: No evidence pneumonia on chest x-ray. Cough is productive. Check sputum culture. Start azithromycin and Rocephin 3. Nicotine dependence: Discussed smoking cessation. He smokes about half a pack a day. Refuses nicotine patch at this time 4. Hyperlipidemia: Continue Lipitor 5. Essential hypertension continue metoprolol 6. Diabetes mellitus type 2: Resume metformin and sliding scale coverage 7. Dementia continue Namenda Encouraged patient to treat increase activity. Try to wean off of O2 keeping O2 saturation at or above 92%. Consult physical therapy Anticipate discharge home possibly tomorrow GI prophylaxis Pepcid and DVT prophylaxis Lovenox I performed an examination of the patient and discussed their management with the physician Auto [employer]. I have reviewed the Physician [employer]'s notes and agree with the documented findings and plan of care
[2018-02-05 17:12] LABS: Glucose,Whole Blood 194 mg/dL (75-99)
[2018-02-05] MEDS: FORMOTEROL FUMARATE 20 MCG/2 ML NEBU INHALATION SCH (19:43)
[2018-02-05] MEDS: ATORVASTATIN 80 MG TAB PO SCH (20:50)
[2018-02-05 20:51] LABS: Glucose,Whole Blood 231 mg/dL (75-99)
[2018-02-05] MEDS: MEMANTINE 5 MG TAB PO SCH (20:51)
[2018-02-05] MEDS: METOPROLOL SUCCINATE (ER) 50 MG TAB.ER.24H PO SCH (20:51)
[2018-02-05] MEDS: NON-FORMULARY DRUG (Omega-3 Fatty Acids/Fish Oil [Fish Oil 1,000 Mg Softgel] 1 CAP) PO SCH (20:53)
[2018-02-05] MEDS: MONTELUKAST 10 MG TAB PO SCH (20:53)
[2018-02-05] MEDS: methylPREDNISolone SOD SUCCI 40 MG/ML 1 ML VIAL IV SCH (23:58)
[2018-02-06] MEDS: IPRATROPIUM-ALBUTEROL 3 ML NEB INHALATION SCH ×4 (07:25→18:55)
[2018-02-06] MEDS: BUDESONIDE 1 MG/2 ML NEBU INHALATION SCH ×2 (07:25→18:55)
[2018-02-06] MEDS: FORMOTEROL FUMARATE 20 MCG/2 ML NEBU INHALATION SCH ×2 (07:25→18:55)
[2018-02-06 07:43] LABS: Glucose,Whole Blood 198 mg/dL (75-99)
[2018-02-06 08:16] LABS: Basophils % (A) 0 %; Eosinophils # (A) 0.1 k/uL (0-0.7); Eosinophils % (A) 1 %; HCT 37.7 % (34.0-46.0); Lymphocytes # (A) 1.4 k/uL (1.0-4.8); Lymphocytes % (A) 9 %; MCH 29.1 pg (25.0-35.0); MCHC 31.9 g/dL (31.0-37.0); MCV 91.1 fL (80.0-100.0); Mean Platelet Volume 9.9; Monocytes # (A) 0.9 k/uL (0-1.0); Monocytes % (A) 5 %; Neutrophils # (A) 14.2 k/uL (1.3-7.7); Neutrophils % (A) 85 %; Platelet Count 204 k/uL (150-450); RBC 4.14 m/uL (3.80-5.40); RDW 14.6 % (11.5-15.5); WBC 16.8 k/uL (3.8-10.6)
[2018-02-06 08:32] LABS: Albumin 3.6 g/dL (3.5-5.0); Anion Gap 12 mmol/L; Calcium 9.1 mg/dL (8.4-10.2); Carbon Dioxide 24 mmol/L (22-30); Chloride 106 mmol/L (98-107); Glucose 207 mg/dL (74-99); Sodium 142 mmol/L (137-145); Total Bilirubin 0.8 mg/dL (0.2-1.3); Total Protein 6.3 g/dL (6.3-8.2)
[2018-02-06 08:38] LABS: Potassium 4.5 mmol/L (3.5-5.1)
[2018-02-06 08:39] LABS: ALT 35 U/L (9-52); AST 38 U/L (14-36); Alkaline Phosphatase 60 U/L (38-126); Blood Urea Nitrogen 19 mg/dL (7-17)
[2018-02-06] MEDS: metFORMIN 500 MG TAB PO SCH ×2 (08:47→21:20)
[2018-02-06] MEDS: DOCUSATE 100 MG CAP PO SCH ×2 (08:47→21:20)
[2018-02-06] MEDS: MULTIVITAMINS, THERA 1 EACH TAB PO SCH (08:47)
[2018-02-06] MEDS: ZINC SULFATE 220 MG CAP PO SCH (08:47)
[2018-02-06] MEDS: ENOXAPARIN 40 MG/0.4 ML SYRINGE SQ SCH (08:47)
[2018-02-06] MEDS: CHOLECALCIFEROL 1,000 UNIT TAB PO SCH (08:47)
[2018-02-06] MEDS: methylPREDNISolone SOD SUCCI 40 MG/ML 1 ML VIAL IV SCH ×3 (08:47→23:06)
[2018-02-06] MEDS: guaiFENesin 600 MG TABLET.ER PO SCH ×2 (08:47→21:20)
[2018-02-06] MEDS: FAMOTIDINE 20 MG TAB PO SCH (08:47)
[2018-02-06] MEDS: AZITHROMYCIN 500 MG TAB PO SCH (08:47)
[2018-02-06] MEDS: cefTRIAXone IN SWFI 1,000 MG/10 ML SYRINGE IVP SCH (08:48)
[2018-02-06] MEDS: INSULIN ASPART 100 UNIT/ML 1 ML 10 ML VIAL SQ SCH ×4 (08:53→21:20)
--- NOTE | 2018-02-06 11:02 | P.PN ---
Subjective Progress Note Date: 02/06/18 This is a 72-year-old female, patient of Dr. Gonzalez. She has a known past medical history of COPD, nicotine dependence, hyperlipidemia, hypertension, diabetes mellitus and dementia. Patient presents to the emergency room with complaints of cough and shortness of breath with congestion and rhinorrhea. Patient reports that she has had symptoms for about 3-4 days. She reports the cough is productive with clear sputum. She has also had some pleuritic chest pain with her cough. Patient was started on IV steroids and bronchodilators in the emergency room. Pulmonary will be consulted. Chest x-ray shows no acute changes but did show an old granulomatous disease. D-dimer normal at 0.53. Influenza screen negative and troponin negative. EKG showing a normal sinus rhythm. Patient denies any fever, chills, sweats. Denies any nausea or vomiting. Denies any bowel movement changes or urinary symptoms. Patient reports that she does not feel much better since starting steroids and nebulizer treatments. We will start Rocephin and azithromycin for an acute bronchitis. 02/05/2018 patient reports she is feeling better. Still having some wheezing. She has been up and ambulating to the bathroom without shortness of breath. Cough is also improving. Pulmonary service is taping down the IV steroids. Patient is complaining of constipation 02/06/2018 patient is still having wheezing. She required be placed back on oxygen after ambulating to the bathroom last night. However, this morning oxygen was taken off and she was able to ambulate in the hallway staining around 92%. Coronary service is following. Case discussed with pulmonary nurse practitioner. We'll continue IV Solu-Medrol for one more day before proceeding with discharge home possibly tomorrow Objective - Vital Signs Vital signs: Vital Signs Temp 98.4 F 02/06/18 07:00 Pulse 76 02/06/18 07:56 Resp 18 02/06/18 07:00 BP 174/80 02/06/18 07:00 Pulse Ox 93 L 02/06/18 07:00 Intake & Output 02/05/18 02/06/18 02/06/18 18:59 06:59 18:59 Intake Total 800 Balance 800 Intake: Oral 800 Other: Voiding Method Toilet # Voids 1 1 - Exam Head normocephalic Neck supple Lungs wheezing bilaterally Heart regular rate and rhythm S1-S2, no rub or gallop Abdomen is soft nontender nondistended positive bowel sounds no hepatosplenomegaly Extremities no edema Neuro alert and orientated to 3 - Labs CBC & Chem 7: 02/06/18 07:27 02/06/18 07:27 Labs: Abnormal Lab Results - Last 24 Hours (Table) 02/05/18 02/05/18 02/05/18 Range/Units 11:50 17:07 20:47 WBC (3.8-10.6) k/uL Neutrophils # (1.3-7.7) k/uL BUN (7-17) mg/dL Glucose (74-99) mg/dL POC Glucose (mg/dL) 201 H 194 H 231 H (75-99) mg/dL AST (14-36) U/L 02/06/18 02/06/18 02/06/18 Range/Units 07:27 07:27 07:30 WBC 16.8 H (3.8-10.6) k/uL Neutrophils # 14.2 H (1.3-7.7) k/uL BUN 19 H (7-17) mg/dL Glucose 207 H (74-99) mg/dL POC Glucose (mg/dL) 198 H (75-99) mg/dL AST 38 H (14-36) U/L Microbiology - Last 24 Hours (Table) 02/02/18 20:51 Blood Culture - Preliminary Blood No Growth after 72 hours Assessment and Plan Assessment: 1. Acute COPD exacerbation: Patient continues to have wheezing. Remaining on IV Solu-Medrol. Dose was decreased to 40 mg IV every 8 hours by pulmonary service. Case discussed with pulmonary service. Patient not ready for discharge. We'll continue with IV steroids for one more day. 2. Acute tracheobronchitis: No evidence pneumonia on chest x-ray. Cough is productive. Unable to collect sputum culture. Continue azithromycin and Rocephin 3. Nicotine dependence: Discussed smoking cessation. He smokes about half a pack a day. Refuses nicotine patch at this time 4. Hyperlipidemia: Continue Lipitor 5. Essential hypertension continue metoprolol 6. Diabetes mellitus type 2: Resume metformin and sliding scale coverage 7. Dementia continue Namenda Encouraged patient to increase activity. Anticipate discharge home possibly tomorrow with home care GI prophylaxis Pepcid and DVT prophylaxis Lovenox I performed an examination of the patient and discussed their management with the physician Chaplaincy. I have reviewed the Physician Chaplaincy's notes and agree with the documented findings and plan of care
--- NOTE | 2018-02-06 11:41 | P.PN ---
Subjective Progress Note Date: 02/06/18 02/03/18- This is a 72-year-old female patient who came into the emergency room with 3-4 days of progressive shortness of breath and a congested cough with clear sputum. She has also had some pleuritic chest pain with coughing. She denies any home oxygen use or CPAP use. Patient states she was taking nebulizer treatments at home prior to coming in however they were not helping much. She continues to complain of shortness of breath with exertion and activity. Has an audible wheeze. She denies any fevers chills or night sweats. The patient did have an influenza swab that was negative. Her chest x- ray showed no acute changes and old granulmatous disease. Patient was started on IV steroids and bronchodilators and antibiotics and admitted to the hospital for further treatment. Of note the patient is a current smoker and smokes approximately half a pack to 1 pack per day for over 50 years. 02/04/18- patient is being seen examined and evaluated today on rounds. She is resting up in bed on room air. She continues to have shortness of breath cough and congestion. She states she has had some small amounts of yellow phlegm. She continues on antibiotics and steroids as well as nebulizer treatments. She feels her breathing is somewhat improving today. Her chest x-ray was negative. 02/05/18- patient is being seen examined and evaluated today on rounds. She continues to have shortness of breath with exertion and wheezes. Patient has not been up ambulating much in the [place]rez. We will add on therapies. She continues on 2 L of supplemental oxygen via nasal cannula. We will continue to try to wean that down. Continues on breathing treatments and steroids. I'll labs and reports have been reviewed. 02/06/18- patient is again seen examined and evaluated today on rounds. She still has some shortness of breath with exertion and wheezing. She does state that she is feeling better however his baseline. She started working with therapies. She is on room air. Afebrile no further complaints. This condition of patient care is discussed with internal medicine [employer]ESS OPERATOR. Patient will remain in hospital at least one more day. She has been giving a prescription for and nebulizer machine as well as E-prescribed nebulizer solutions. Objective - Vital Signs Vital signs: Vital Signs Temp 98.4 F 02/06/18 07:00 Pulse 76 03/16/18 07:56 Resp 18 02/06/18 07:00 BP 174/80 02/06/18 07:00 Pulse Ox 93 L 02/06/18 07:00 Intake & Output 02/05/18 02/06/18 02/06/18 18:59 06:59 18:59 Intake Total 800 Balance 800 Intake: Oral 800 Other: Voiding Method Toilet Toilet # Voids 1 1 - Exam GENERAL EXAM: Alert, comfortable in no apparent distress. HEAD: Normocephalic. EYES: Normal reaction of pupils, equal size. NOSE: Clear with pink turbinates. THROAT: No erythema or exudates. NECK: No masses, no JVD. CHEST: No chest wall deformity. LUNGS: Lungs noted to be coarse bilaterally with inspiratory and expiratory wheezing. Bases diminished. Overall improving CVS: S1 and S2 normal with no audible mumurs, regular rhythm. ABDOMEN: No hepatosplenomegaly, normal bowel sounds, no guarding or rigidity. EXTREMITIES: No edema noted, pedal pulses palpable. CENTRAL NERVOUS SYSTEM: No focal deficits, tone is normal in all 4 extremities. - Labs CBC & Chem 7: 02/06/18 07:27 02/06/18 07:27 Labs: Abnormal Lab Results - Last 24 Hours (Table) 02/05/18 02/05/18 02/05/18 Range/Units 11:50 17:07 20:47 WBC (3.8-10.6) k/uL Neutrophils # (1.3-7.7) k/uL BUN (7-17) mg/dL Glucose (74-99) mg/dL POC Glucose (mg/dL) 201 H 194 H 231 H (75-99) mg/dL AST (14-36) U/L 02/06/18 02/06/18 02/06/18 Range/Units 07:27 07:27 07:30 WBC 16.8 H (3.8-10.6) k/uL Neutrophils # 14.2 H (1.3-7.7) k/uL BUN 19 H (7-17) mg/dL Glucose 207 H (74-99) mg/dL POC Glucose (mg/dL) 198 H (75-99) mg/dL AST 38 H (14-36) U/L Microbiology - Last 24 Hours (Table) 02/02/18 20:51 Blood Culture - Preliminary Blood No Growth after 72 hours Assessment and Plan Assessment: Assessment Acute exacerbation of COPD Acute tracheobronchitis Nicotine dependence Hypertension Diabetes mellitus type 2 Hyperlipidemia Plan Medications have been reviewed and will be continued as ordered. Continue with her current nebulizer treatments. Patient has been given a prescription for her nebulizer machine as well as the prescribed nebulizer solutions. Mucinex. Obtain sputum culture. Continue with antibiotics and IV steroids. We will taper steroids. Continue with pulmonary hygiene, coughing and deep breathing exercises, and supportive care. Supplemental oxygen to maintain oxygen saturations of 92% or better if needed. Continue nebulizer treatments. Smoking cessation discussed. Initiate and encourage incentive spirometer. GI and DVT prophylaxis. We will continue to monitor labs/results and adjust treatment as necessary. Further recommendations pending. I performed an examination of the patient and discussed their management with the nurse practitioner. I have reviewed the nurse practitioner's note and agree with the documented findings and plan of care.
[2018-02-06 12:09] LABS: Glucose,Whole Blood 179 mg/dL (75-99)
[2018-02-06] MEDS: ACETYLCYSTEINE 800 MG/4 ML VIAL INHALATION SCH ×2 (14:00→18:55)
--- NOTE | 2018-02-06 15:53 | XR ---
EXAMINATION TYPE: XR chest 2V DATE OF EXAM: 02/06/2018 COMPARISON: 02/02/2018 TECHNIQUE: PA and lateral views submitted. HISTORY: Shortness of breath FINDINGS: The lungs are clear and there is no pneumothorax, pleural effusion, or focal pneumonia. Calcified g ranuloma right upper lobe. Chronic deformity of the left humerus and arthropathy shoulders. Linear de nsity involving both lungs most typical scar or atelectasis. Degenerative and hypertrophic change of the spine. On the lateral view there is a nodular density in the subcarinal region which may represen t a calcified lymph node measuring 2 cm. IMPRESSION: 1. No acute process.
[2018-02-06 17:25] LABS: Glucose,Whole Blood 174 mg/dL (75-99)
[2018-02-06 20:12] LABS: Glucose,Whole Blood 190 mg/dL (75-99)
[2018-02-06] MEDS: MEMANTINE 5 MG TAB PO SCH (21:20)
[2018-02-06] MEDS: ATORVASTATIN 80 MG TAB PO SCH (21:20)
[2018-02-06] MEDS: NON-FORMULARY DRUG (Omega-3 Fatty Acids/Fish Oil [Fish Oil 1,000 Mg Softgel] 1 CAP) PO SCH (21:21)
[2018-02-06] MEDS: METOPROLOL SUCCINATE (ER) 50 MG TAB.ER.24H PO SCH (21:21)
[2018-02-06] MEDS: MONTELUKAST 10 MG TAB PO SCH (21:21)
[2018-02-07 07:34] LABS: Basophils % (A) 0 %; Eosinophils # (A) 0.1 k/uL (0-0.7); Eosinophils % (A) 0 %; HCT 40.9 % (34.0-46.0); HGB 13.7 gm/dL (11.4-16.0); Lymphocytes # (A) 1.7 k/uL (1.0-4.8); Lymphocytes % (A) 12 %; MCH 29.8 pg (25.0-35.0); MCHC 33.5 g/dL (31.0-37.0); MCV 88.9 fL (80.0-100.0); Mean Platelet Volume 8.7; Monocytes # (A) 0.8 k/uL (0-1.0); Monocytes % (A) 5 %; Neutrophils % (A) 81 %; Platelet Count 247 k/uL (150-450); RDW 14.2 % (11.5-15.5); WBC 14.8 k/uL (3.8-10.6)
[2018-02-07 07:36] LABS: Glucose,Whole Blood 185 mg/dL (75-99)
[2018-02-07 08:09] LABS: ALT 51 U/L (9-52); AST 31 U/L (14-36); Albumin 3.6 g/dL (3.5-5.0); Alkaline Phosphatase 71 U/L (38-126); Anion Gap 14 mmol/L; Blood Urea Nitrogen 20 mg/dL (7-17); Calcium 9.1 mg/dL (8.4-10.2); Carbon Dioxide 26 mmol/L (22-30); Chloride 101 mmol/L (98-107); Glucose 198 mg/dL (74-99); Potassium 4.7 mmol/L (3.5-5.1); Sodium 141 mmol/L (137-145); Total Bilirubin 0.8 mg/dL (0.2-1.3); Total Protein 6.1 g/dL (6.3-8.2)
[2018-02-07] MEDS: ACETYLCYSTEINE 800 MG/4 ML VIAL INHALATION SCH ×3 (08:14→19:57)
[2018-02-07] MEDS: FORMOTEROL FUMARATE 20 MCG/2 ML NEBU INHALATION SCH ×2 (08:15→19:52)
[2018-02-07] MEDS: IPRATROPIUM-ALBUTEROL 3 ML NEB INHALATION SCH ×4 (08:15→19:52)
[2018-02-07] MEDS: BUDESONIDE 1 MG/2 ML NEBU INHALATION SCH ×2 (08:15→20:08)
[2018-02-07] MEDS: INSULIN ASPART 100 UNIT/ML 1 ML 10 ML VIAL SQ SCH ×4 (08:22→20:47)
[2018-02-07] MEDS: methylPREDNISolone SOD SUCCI 40 MG/ML 1 ML VIAL IV SCH (08:23)
[2018-02-07] MEDS: cefTRIAXone IN SWFI 1,000 MG/10 ML SYRINGE IVP SCH (08:23)
[2018-02-07] MEDS: AZITHROMYCIN 500 MG TAB PO SCH (08:23)
[2018-02-07] MEDS: guaiFENesin 600 MG TABLET.ER PO SCH ×2 (08:24→20:47)
[2018-02-07] MEDS: CHOLECALCIFEROL 1,000 UNIT TAB PO SCH (08:24)
[2018-02-07] MEDS: DOCUSATE 100 MG CAP PO SCH ×2 (08:24→20:47)
[2018-02-07] MEDS: ENOXAPARIN 40 MG/0.4 ML SYRINGE SQ SCH (08:24)
[2018-02-07] MEDS: FAMOTIDINE 20 MG TAB PO SCH (08:24)
[2018-02-07] MEDS: MULTIVITAMINS, THERA 1 EACH TAB PO SCH (08:25)
[2018-02-07] MEDS: metFORMIN 500 MG TAB PO SCH ×2 (08:25→20:48)
[2018-02-07] MEDS: ZINC SULFATE 220 MG CAP PO SCH (08:25)
--- NOTE | 2018-02-07 11:07 | P.PN ---
Subjective Progress Note Date: 02/07/18 Principal diagnosis: Acute exacerbation of COPD 02/03/18- This is a 72-year-old female patient who came into the emergency room with 3-4 days of progressive shortness of breath and a congested cough with clear sputum. She has also had some pleuritic chest pain with coughing. She denies any home oxygen use or CPAP use. Patient states she was taking nebulizer treatments at home prior to coming in however they were not helping much. She continues to complain of shortness of breath with exertion and activity. Has an audible wheeze. She denies any fevers chills or night sweats. The patient did have an influenza swab that was negative. Her chest x- ray showed no acute changes and old granulmatous disease. Patient was started on IV steroids and bronchodilators and antibiotics and admitted to the hospital for further treatment. Of note the patient is a current smoker and smokes approximately half a pack to 1 pack per day for over 50 years. 02/04/18- patient is being seen examined and evaluated today on rounds. She is resting up in bed on room air. She continues to have shortness of breath cough and congestion. She states she has had some small amounts of yellow phlegm. She continues on antibiotics and steroids as well as nebulizer treatments. She feels her breathing is somewhat improving today. Her chest x-ray was negative. 02/05/18- patient is being seen examined and evaluated today on rounds. She continues to have shortness of breath with exertion and wheezes. Patient has not been up ambulating much in the perez. We will add on therapies. She continues on 2 L of supplemental oxygen via nasal cannula. We will continue to try to wean that down. Continues on breathing treatments and steroids. I'll labs and reports have been reviewed. 02/06/18- patient is again seen examined and evaluated today on rounds. She still has some shortness of breath with exertion and wheezing. She does state that she is feeling better however his baseline. She started working with therapies. She is on room air. Afebrile no further complaints. This condition of patient care is discussed with internal medicine [employer]. Patient will remain in hospital at least one more day. She has been giving a prescription for and nebulizer machine as well as E-prescribed nebulizer solutions. 02/07/2018: Patient seen and examined. Patient states her breathing is much better today. She is less wheezy and less short of breath. She states she feels like she is ready to go home. She does have a nebulizer which has been arranged for her and is at bedside. She will follow up with pulmonary in 1-2 weeks. Objective - Vital Signs Vital signs: Vital Signs Temp 98.1 F 02/07/18 07:00 Pulse 72 02/07/18 08:36 Resp 18 02/07/18 07:00 BP 171/87 02/07/18 07:00 Pulse Ox 93 L 02/07/18 07:00 Intake & Output 02/06/18 02/07/18 02/07/18 18:59 06:59 18:59 Intake Total 240 Balance 240 Intake: Oral 240 Other: Voiding Method Toilet Toilet # Voids 1 1 - Exam GENERAL EXAM: Alert, comfortable in no apparent distress. HEAD: Normocephalic. EYES: Normal reaction of pupils, equal size. NOSE: Clear with pink turbinates. THROAT: No erythema or exudates. NECK: No masses, no JVD. CHEST: No chest wall deformity. LUNGS: Lungs noted to be coarse bilaterally with inspiratory and expiratory wheezing. Bases diminished. Overall improving CVS: S1 and S2 normal with no audible mumurs, regular rhythm. ABDOMEN: No hepatosplenomegaly, normal bowel sounds, no guarding or rigidity. EXTREMITIES: No edema noted, pedal pulses palpable. CENTRAL NERVOUS SYSTEM: No focal deficits, tone is normal in all 4 extremities. - Labs CBC & Chem 7: 02/07/18 06:50 02/07/18 06:50 Labs: Abnormal Lab Results - Last 24 Hours (Table) 02/06/18 02/06/18 02/06/18 Range/Units 12:02 17:22 20:10 WBC (3.8-10.6) k/uL Neutrophils # (1.3-7.7) k/uL BUN (7-17) mg/dL Glucose (74-99) mg/dL POC Glucose (mg/dL) 179 H 174 H 190 H (75-99) mg/dL Total Protein (6.3-8.2) g/dL 02/07/18 02/07/18 02/07/18 Range/Units 06:50 06:50 07:16 WBC 14.8 H (3.8-10.6) k/uL Neutrophils # 12.0 H (1.3-7.7) k/uL BUN 20 H (7-17) mg/dL Glucose 198 H (74-99) mg/dL POC Glucose (mg/dL) 185 H (75-99) mg/dL Total Protein 6.1 L (6.3-8.2) g/dL Microbiology - Last 24 Hours (Table) 02/02/18 20:51 Blood Culture - Preliminary Blood No Growth after 96 hours Assessment and Plan Assessment: Acute exacerbation of COPD Acute tracheobronchitis Nicotine dependence Hypertension Diabetes mellitus type 2 Hyperlipidemia Obesity, suspect underlying PAKO Plan Medications have been reviewed and will be continued as ordered. Continue with her current nebulizer treatments. Patient has been given a prescription for her nebulizer machine as well as the prescribed nebulizer solutions. Mucinex. Obtain sputum culture. Continue with antibiotics. We will taper steroids. Continue with pulmonary hygiene, coughing and deep breathing exercises, and supportive care. Supplemental oxygen to maintain oxygen saturations of 92% or better if needed. Continue nebulizer treatments. Smoking cessation discussed. Initiate and encourage incentive spirometer. GI and DVT prophylaxis. We will continue to monitor labs/results and adjust treatment as necessary. Further recommendations pending. Ok to DC from pulmonary standpoint. Prednisone taper , Pulmicort BID, Duonebs QID and PRN, Singulair, ABX x 3 more days. Follow up in pulmonary office in 1-2 weeks. Smoking cessation highly recommended.
[2018-02-07 12:41] LABS: Glucose,Whole Blood 173 mg/dL (75-99)
--- NOTE | 2018-02-07 14:46 | P.DS ---
Providers Date of admission: 02/04/18 14:56 Expected date of discharge: 02/07/18 Attending physician: Soledad Alvarez Consults: 02/03/18 10:09 Consult Physician Routine Consulting Provider: Kartik Jaimes Consult Reason/Comments: COPD exacerbation Do you want consulting provider notified?: Yes [facility] Course: 1. Acute COPD exacerbation: Seen and evaluated by pulmonology. Improved with IV steroids and bronchodilators. We will discharge home with 5 days course of prednisone. 2. Acute tracheobronchitis: No evidence pneumonia on chest x-ray. Unable to collect sputum culture. Started on azithromycin and Rocephin in the hospital. Will be discharged with 3 more days of Levaquin. 3. Nicotine dependence: Discussed smoking cessation. He smokes about half a pack a day. Refuses nicotine patch at this time 4. Hyperlipidemia: Continue Lipitor 5. Essential hypertension: Blood pressure well-controlled 6. Diabetes mellitus type 2: Resume metformin and sliding scale coverage 7. Dementia continue Namenda Patient Condition at Discharge: Stable Plan - Discharge Summary Discharge Rx Participant: No New Discharge Prescriptions: New Budesonide [Pulmicort] 0.5 mg INHALATION BID #60 neb Formoterol Fumarate [Perforomist] 20 mcg IH BID #60 vial.neb Ipratropium-Albuterol Nebulize [Duoneb 0.5 mg-3 mg/3 ml Soln] 3 ml INHALATION QID #120 neb No Action metFORMIN HCL [Glucophage] 500 mg PO BID [place]-3 Fatty Acids/Fish Oil [Fish Oil 1,000 mg Softgel] 1 cap PO HS Multivitamins, Thera [Multivitamin (formulary)] 1 tab PO DAILY Memantine HCl [Namenda Xr] 7 mg PO HS Cranberry Fruit Concentrate [Cranberry] 450 mg PO HS Atorvastatin [Lipitor] 80 mg PO HS Albuterol Inhaler [Ventolin Hfa Inhaler] 2 puff INHALATION RT-Q6H PRN PRN Reason: Shortness Of Breath Zinc 50 mg PO DAILY Metoprolol Succinate (ER) [Toprol XL] 50 mg PO HS Cholecalciferol [Vitamin D3] 1,000 unit PO DAILY Discharge Medication List metFORMIN HCL [Glucophage] 500 mg PO BID 04/09/14 [History] Multivitamins, Thera [Multivitamin (formulary)] 1 tab PO DAILY 01/30/17 [History ] [place]-3 Fatty Acids/Fish Oil [Fish Oil 1,000 mg Softgel] 1 cap PO HS 01/30/17 [ History] Albuterol Inhaler [Ventolin Hfa Inhaler] 2 puff INHALATION RT-Q6H PRN 02/02/18 [ History] Atorvastatin [Lipitor] 80 mg PO HS 02/02/18 [History] Cholecalciferol [Vitamin D3] 1,000 unit PO DAILY 02/02/18 [History] Cranberry Fruit Concentrate [Cranberry] 450 mg PO HS 02/02/18 [History] Memantine HCl [Namenda Xr] 7 mg PO HS 02/02/18 [History] Metoprolol Succinate (ER) [Toprol XL] 50 mg PO HS 02/02/18 [History] Zinc 50 mg PO DAILY 02/02/18 [History] Budesonide [Pulmicort] 0.5 mg INHALATION BID #60 neb 02/06/18 [Rx] Formoterol Fumarate [Perforomist] 20 mcg IH BID #60 vial.neb 02/06/18 [Rx] Ipratropium-Albuterol Nebulize [Duoneb 0.5 mg-3 mg/3 ml Soln] 3 ml INHALATION QID #120 neb 02/06/18 [Rx] Follow up Appointment(s)/Referral(s): Kartik Jaimes MD [STAFF PHYSICIAN] - 1 Week Zeinab Pimentel MD [Primary Care Provider] - 1-2 days
[2018-02-07 17:22] LABS: Glucose,Whole Blood 195 mg/dL (75-99)
[2018-02-07 20:15] LABS: Glucose,Whole Blood 199 mg/dL (75-99)
[2018-02-07] MEDS: ATORVASTATIN 80 MG TAB PO SCH (20:47)
[2018-02-07] MEDS: MEMANTINE 5 MG TAB PO SCH (20:48)
[2018-02-07] MEDS: MONTELUKAST 10 MG TAB PO SCH (20:48)
[2018-02-07] MEDS: METOPROLOL SUCCINATE (ER) 50 MG TAB.ER.24H PO SCH (20:48)
[2018-02-07] MEDS: NON-FORMULARY DRUG (Omega-3 Fatty Acids/Fish Oil [Fish Oil 1,000 Mg Softgel] 1 CAP) PO SCH (20:49)
[2018-02-08 08:13] LABS: Glucose,Whole Blood 139 mg/dL (75-99)
[2018-02-08] MEDS: AZITHROMYCIN 500 MG TAB PO SCH (08:47)
[2018-02-08] MEDS: DOCUSATE 100 MG CAP PO SCH (08:47)
[2018-02-08] MEDS: CHOLECALCIFEROL 1,000 UNIT TAB PO SCH (08:48)
[2018-02-08] MEDS: MULTIVITAMINS, THERA 1 EACH TAB PO SCH (08:48)
[2018-02-08] MEDS: metFORMIN 500 MG TAB PO SCH (08:48)
[2018-02-08] MEDS: FAMOTIDINE 20 MG TAB PO SCH (08:48)
[2018-02-08] MEDS: guaiFENesin 600 MG TABLET.ER PO SCH (08:48)
[2018-02-08] MEDS: ZINC SULFATE 220 MG CAP PO SCH (08:48)
[2018-02-08] MEDS: INSULIN ASPART 100 UNIT/ML 1 ML 10 ML VIAL SQ SCH ×2 (08:48→12:43)
[2018-02-08] MEDS: ENOXAPARIN 40 MG/0.4 ML SYRINGE SQ SCH (08:48)
[2018-02-08] MEDS: cefTRIAXone IN SWFI 1,000 MG/10 ML SYRINGE IVP SCH (08:51)
[2018-02-08] MEDS ORDERED: predniSONE 20 MG TAB PO SCH (09:00)
[2018-02-08 09:07] VITALS: BP 142/83; RESP 18; TEMP 98.1
[2018-02-08] MEDS: ACETYLCYSTEINE 800 MG/4 ML VIAL INHALATION SCH (09:39)
[2018-02-08] MEDS: IPRATROPIUM-ALBUTEROL 3 ML NEB INHALATION SCH ×3 (09:40→15:58)
[2018-02-08] MEDS: BUDESONIDE 1 MG/2 ML NEBU INHALATION SCH (09:41)
[2018-02-08] MEDS: FORMOTEROL FUMARATE 20 MCG/2 ML NEBU INHALATION SCH (09:42)
[2018-02-08 10:04] VITALS: PULSE 80
[2018-02-08 12:04] LABS: Glucose,Whole Blood 151 mg/dL (75-99)
--- NOTE | 2018-02-08 15:07 | P.PN ---
Progress Note - Text Patient was discharged yesterday but her discharge was postponed until today awaiting therapeutic case manager to set up home care. Please refer to my discharge summary dictated 02/07/2018.
== END 2018-02-08 15:50 | disposition home or self-care (01) | DRG 192 ==
LOC: EC 20:12 → 5MS5E 23:56 → OBSVTOIN 02-04 14:56 → 5MS5E 02-04 20:14
PROVIDERS: ADMIT Internal Medicine; ATTEND Internal Medicine
DX: J44.0 Chronic obstructive pulmonary disease with (acute) lower respiratory infection (principal); E11.65 Type 2 diabetes mellitus with hyperglycemia; F03.90 Unspecified dementia, unspecified severity, without behavioral disturbance, psychotic disturbance, mood disturbance, and anxiety; T38.0X5A Adverse effect of glucocorticoids and synthetic analogues, initial encounter; E66.9 Obesity, unspecified; F17.210 Nicotine dependence, cigarettes, uncomplicated; J20.9 Acute bronchitis, unspecified; K59.00 Constipation, unspecified; J44.1 Chronic obstructive pulmonary disease with (acute) exacerbation; E78.5 Hyperlipidemia, unspecified; I10 Essential (primary) hypertension; R41.3 Other amnesia; F17.200 Nicotine dependence, unspecified, uncomplicated; Z68.26 Body mass index [BMI] 26.0-26.9, adult; Z79.84 Long term (current) use of oral hypoglycemic drugs; Z79.899 Other long term (current) drug therapy; Z90.710 Acquired absence of both cervix and uterus; Z87.01 Personal history of pneumonia (recurrent); Z82.49 Family history of ischemic heart disease and other diseases of the circulatory system; Z71.6 Tobacco abuse counseling
CPT/HCPCS: 36415; 71046; 80053; 82550; 82553; 83735; 83880; 84484; 85025; 85379; 85610; 85730; 87040; 87502; 93005; 94640; 94667; 94760; 96361; 96374; 99291

== ENCOUNTER 2018-09-08 07:08 | Day surgery (SDC) | payer MEDICARE, BC ==
[2018-09-04 14:20] VITALS: BMI 21.2
[~2018-09-08 07:08] MED LIST: LACTATED RINGERS 1,000 ML IV SCH
[2018-09-08] MEDS: PHENYLEPHRINE 10% OPHTH DROPS 5 ML BTL OP ONE ×3 (07:57→08:21)
[2018-09-08 08:00] VITALS: RESP 16; TEMP 97.4
[2018-09-08] MEDS: CYCLOPENTOLATE 1% OPHTH SOLN 2 ML BTL OP ONE ×3 (08:00→08:24)
[2018-09-08] MEDS: KETOROLAC 0.5% OPHTH DROPS 5 ML BTL OP ONE ×3 (08:06→08:29)
[2018-09-08 08:12] LABS: Glucose,Whole Blood 145 mg/dL (75-99)
[2018-09-08] MEDS ORDERED: LIDOCAINE 1% INJ 10MG/ML (20 ML MDV) ONE (08:59)
[2018-09-08] MEDS ORDERED: PROPOFOL 10 MG/ML 20 ML VIAL IV ONE (08:59)
[2018-09-08] MEDS ORDERED: MIDAZOLAM 2 MG/2 ML VIAL ONE (08:59)
[2018-09-08] MEDS ORDERED: fentaNYL (PF) 50 MCG/ML 2 ML AMP ONE (08:59)
[2018-09-08] MEDS ORDERED: EPINEPHrine (PF) 0.5 ML in BALANCED SALT IRRIG SOLN COMB2 500 ML IRRIGATION ONE (09:14)
[2018-09-08] MEDS ORDERED: BALANCED SALT IRRIG SOLN COMB2 15 ML IRRIG.SOLN IRRIGATION ONE (09:16)
[2018-09-08] MEDS ORDERED: HYALURONATE SODIUM INTRAOCULAR 1 EACH SYRINGE (10MG/ML) INTRAOCULA ONE (09:17)
--- NOTE | 2018-09-08 09:25 | P.OP ---
Date of Procedure: 09/08/18 Procedure(s) Performed: PREOPERATIVE DIAGNOSIS: Cataract, left eye. POSTOPERATIVE DIAGNOSIS: Cataract, left eye. OPERATION: Phacoemulsification cataract, left eye. DESCRIPTION OF PROCEDURE: The patient was taken to the preoperative holding area. Intravenous Propofol was given so as to bring about adequate sedation. The following mixture was given for local anesthesia: 5 mL of 2% lidocaine, 5 mL of 0.75% Marcaine, and 1 mL of Wydase. Approximately 4 mL was injected in the retrobulbar space of the surgical eye. Additional 1 mL was then directed to the temporal area of the surgical eye. This was performed to allow adequate neurological block of the facial muscles. The patient was revived and then taken into the operative room. The patient was prepped and draped in the usual sterile manner for the operative eye. A lid speculum was put into position. The conjunctiva was resected back from the limbus in the 12 o'clock position. Bleeding was controlled with electrocautery. A #69 blade was then used and a half-thickness scleral incision approximately 1-mm posterior to the limbus was made on bare sclera. This was shelved in the clear cornea using a crescent knife. Next a 15-degree blade was used to make a stab incision at the 3 o' clock position at the corneolimbal interface. Keratome blade was then used and the superior wound was extended into the anterior chamber. Viscoelastic was injected into the anterior chamber and to maintain its form. Next, a cystotome was used and a continuous anterior capsulotomy was made without difficulty. Hydrodissection using a blunt cannula and BSS was performed. Phaco probe was then employed and a groove extending from 12 to 6 o'clock in the lens was created. A Mukesh wand was used through the stab incision so as to perform a divide and conquer technique. Next an irrigation aspiration probe was utilized and any residual cortex was removed from the eye. Again, viscoelastic was injected into the anterior chamber. An Avni posterior chamber lens implant was placed in the cartridge and injected into the anterior chamber without difficulty. The SinINPA Systemsey hook was utilized to spin the lens into position and this was again performed without any difficulty. The irrigation and aspiration probe was again employed and any residual viscoelastic was removed from the eye. Then BSS was injected into the limbal stab incision and the anterior chamber re-inflated. The conjunctiva was reapproximated using electrocautery. One drop of 0.25% Timoptic was placed over the corneal along with TobraDex ophthalmic ointment. Two sterile patches and a Taylor eye shield were taped into position. The patient was transported to the recovery room in stable condition. Pathology: none sent Condition: stable Disposition: same day
[2018-09-08 10:05] VITALS: BP 133/75; PULSE 71
[2018-09-08] MEDS ORDERED: TIMOLOL 0.5% OPHTH DROPS 5 ML BTL OP ONE (23:00)
[2018-09-08] MEDS ORDERED: GENTAMICIN/PREDNISOL AC OPHTH OINT 3.5GM OPHTHALMIC ONE (23:00)
[2018-09-08] MEDS ORDERED: BUPIVACAINE (PF) 0.75% 5 ML, HYALURONIDASE, HUMAN RECOMB 150 UNIT, LIDOCAINE 2% (PF) 10... MISCELLANE ONE ×3 (23:00)
== END 2018-09-08 10:16 | disposition home or self-care (01) ==
LOC: OR 07:08
PROVIDERS: ATTEND Ophthalmology
DX: H26.9 Unspecified cataract (principal); E11.9 Type 2 diabetes mellitus without complications; J44.9 Chronic obstructive pulmonary disease, unspecified; F03.90 Unspecified dementia, unspecified severity, without behavioral disturbance, psychotic disturbance, mood disturbance, and anxiety; F17.200 Nicotine dependence, unspecified, uncomplicated; I10 Essential (primary) hypertension; Z98.41 Cataract extraction status, right eye; Z96.1 Presence of intraocular lens; Z79.899 Other long term (current) drug therapy; Z79.84 Long term (current) use of oral hypoglycemic drugs
CPT/HCPCS: 66984; V2632; J2250; J3470; J2001 ×2; J0171; J3010; J2704

== ENCOUNTER 2020-08-23 17:23 | Emergency (ER) | payer MEDICARE, BC ==
[2020-08-23 17:28] VITALS: RESP 16; TEMP 97.9
[2020-08-23] MEDS ORDERED: HYDROcodone/APAP 5-325MG 1 EACH TAB PO STA (18:10)
--- NOTE | 2020-08-23 18:11 | ED ---
Fall HPI - General Chief Complaint: Fall Stated Complaint: FALL ARM INJURY Time Seen by Provider: 08/23/20 17:38 Source: EMS, RN notes reviewed, old records reviewed Mode of arrival: EMS Limitations: no limitations - History of Present Illness Initial Comments: This is a 75-year-old female tripped and fall. Patient had a mechanical fall falling and landing on her left shoulder not her head no loss of consciousness no feelings of lightheadedness dizziness or weakness no other pain noted. Patient is inflammatory. Patient's brought in by EMS for evaluation. Patient complaining of left shoulder pain MD Complaint: fall -: hour(s) Fall From: standing When Fall Occurred: 1 hour [employer] Fall Witnessed: yes, by family Place Fall Occurred: home Loss of Consciousness: none Prolonged Down Time?: no Symptoms Prior to Fall: none Location - Extremities: Left: Shoulder Severity: severe Severity scale (1-10): 7 Quality: sharp, dull Context: tripped/slipped Associated Symptoms: denies - Related Data Home Medications Medication Instructions Recorded Confirmed metFORMIN HCL [Glucophage] 500 mg PO BID 04/09/14 09/04/18 Multivitamins, Thera [Multivitamin 1 tab PO DAILY 01/30/17 09/04/18 (formulary)] [place]-3 Fatty Acids/Fish Oil [Fish 1 cap PO DAILY 01/30/17 09/04/18 Oil 1,000 mg Softgel] Albuterol Inhaler (Mhu) [Ventolin 2 puff INHALATION RT-Q6H PRN 02/02/18 09/04/18 Hfa Inhaler (Mhu)] Atorvastatin [Lipitor] 80 mg PO HS 02/02/18 09/04/18 Cholecalciferol [Vitamin D3 (25 1,000 unit PO DAILY 02/02/18 09/04/18 Mcg = 1000 Iu)] Cranberry Fruit Concentrate 450 mg PO HS 02/02/18 09/04/18 [Cranberry] Memantine HCl [Namenda Xr] 7 mg PO HS 02/02/18 09/04/18 Metoprolol Succinate (ER) [Toprol 50 mg PO HS 02/02/18 09/04/18 XL] Zinc 50 mg PO DAILY 02/02/18 09/04/18 Budesonide [Pulmicort] 0.5 mg INHALATION BID PRN 09/04/18 09/04/18 Ipratropium-Albuterol Nebulize 3 ml INHALATION QID PRN 09/04/18 09/04/18 [Duoneb 0.5 mg-3 mg/3 ml Soln] Previous Rx's Medication Instructions Recorded Formoterol Fumarate [Perforomist] 20 mcg IH BID #60 vial.neb 02/06/18 Allergies Allergy/AdvReac Type Severity Reaction Status Date / Time No Known Allergies Allergy Verified 08/23/20 17:25 Review of Systems ROS Statement: Those systems with pertinent positive or pertinent negative responses have been documented in the HPI. ROS Other: All systems not noted in ROS Statement are negative. Past Medical History Past Medical History: COPD, Dementia, Diabetes Mellitus, Deep Vein Thrombosis (DVT), Hyperlipidemia, Hypertension, Memory Impairment, Pneumonia Additional Past Medical History / Comment(s): NIDDM, tracheobronchitis, memory problems. History of Any Multi-Drug Resistant Organisms: None Reported Past Surgical History: Hysterectomy, Orthopedic Surgery, Tonsillectomy Additional Past Surgical History / Comment(s): d&c, left knee arthroscopy, R eye cataract removal. Past Anesthesia/Blood Transfusion Reactions: No Reported Reaction Past Psychological History: No Psychological Hx Reported Smoking Status: Never smoker Past Alcohol Use History: Occasional Past Drug Use History: None Reported - Past Family History Father Family Medical History: Congestive Heart Failure (CHF), Myocardial Infarction ([place]) Additional Family Medical History / Comment(s): Father of [place]/ CHF at age 40 or 41 yrs. Mother Family Medical History: Congestive Heart Failure ([place]), Myocardial Infarction ([place]) Additional Family Medical History / Comment(s): Mother at age 90 yrs. Brother(s) Family Medical History: CVA/TIA Son(s) Family Medical History: Myocardial Infarction ([place]) Additional Family Medical History / Comment(s): age 42 General Exam Limitations: physical limitation General appearance: alert, in no apparent distress Head exam: Present: atraumatic, normocephalic, normal inspection Eye exam: Present: normal appearance, PERRL, EOMI. Absent: scleral icterus, conjunctival injection, periorbital swelling ENT exam: Present: normal exam, mucous membranes moist Neck exam: Present: normal inspection. Absent: tenderness, meningismus, lymphadenopathy Respiratory exam: Present: normal lung sounds bilaterally. Absent: respiratory distress, wheezes, rales, rhonchi, stridor Cardiovascular Exam: Present: regular rate, normal rhythm, normal heart sounds. Absent: systolic murmur, diastolic murmur, rubs, gallop, clicks GI/Abdominal exam: Present: soft, normal bowel sounds. Absent: distended, tenderness, guarding, rebound, rigid Extremities exam: Present: normal inspection, full ROM, normal capillary refill, other (Left shoulder has severe pain). Absent: tenderness, pedal edema, joint swelling, calf tenderness Back exam: Present: normal inspection Neurological exam: Present: alert, oriented X3, CN II-XII intact Psychiatric exam: Present: normal affect, normal mood Skin exam: Present: warm, dry, intact, normal color. Absent: rash Course Vital Signs 08/23/20 08/23/20 17:25 18:29 Temperature 97.9 F Pulse Rate 81 86 Respiratory 16 16 Rate Blood Pressure 129/60 145/95 O2 Sat by Pulse 93 L 99 Oximetry - Reevaluation(s) Reevaluation #1: 08/23/20 18:45 Medical record is reviewed Reevaluation #2: 08/23/20 18:46 Patient's pain is improved Reevaluation #3: 08/23/20 18:46 Patient informed results and questions have been answered Medical Decision Making - Medical Decision Making 75 female to the ER for evaluation of fall fall with shoulder pain. Patient has improved pain control, put in a sling and can be discharged home - Radiology Data Radiology results: report reviewed (X-ray left shoulder does show positive fracture), image reviewed Disposition Clinical Impression: Fall, Fracture of humerus, Fracture of proximal end of left humerus Disposition: HOME SELF-CARE Condition: Good Instructions (If sedation given, give patient instructions): Fall Prevention for Older Adults (ED), Proximal Humerus Fracture (ED) Is patient prescribed a controlled substance at d/c from ED?: No Referrals: Zeinab Pimentel MD [Primary Care Provider] - 1-2 days
[2020-08-23 18:30] VITALS: BP 145/95; PULSE 86
--- NOTE | 2020-08-23 18:43 | XR ---
EXAMINATION TYPE: XR chest 1V DATE OF EXAM: 08/23/2020 COMPARISON: 02/06/2018 HISTORY: Fall. Pain. TECHNIQUE: FINDINGS: Heart is normal. Lungs are clear of infiltrate. There are small calcified granuloma right u pper lobe. There is calcified granuloma inferior left pulmonary hilum. There is no pleural effusion o r pneumothorax. There is some arthritic change in the left shoulder. There is old left humeral neck f racture. IMPRESSION: No active cardiopulmonary disease. Normal heart. No change.
--- NOTE | 2020-08-23 18:45 | XR ---
EXAMINATION TYPE: XR shoulder complete LT DATE OF EXAM: 08/23/2020 COMPARISON: 01/30/2017 HISTORY: Fall. Pain. TECHNIQUE: 3 views FINDINGS: There is deformity of the humeral neck related to an old healed fracture. There is irregula r lucency at the humeral neck that is suspicious for an acute fracture at the same location. The AC j oint is intact. There is no dislocation. IMPRESSION: Old humeral neck fracture. There is probably an acute fracture of the humeral neck and th e same location.
[2020-08-23] MEDS ORDERED: ACET/COD 300 MG/30 MG STARTER PACK 6 TAB BTL PO STA (18:59)
== END 2020-08-23 19:10 | disposition home or self-care (01) ==
LOC: EC 17:23
DX: S42.292A Other displaced fracture of upper end of left humerus, initial encounter for closed fracture (principal); J44.9 Chronic obstructive pulmonary disease, unspecified; F03.90 Unspecified dementia, unspecified severity, without behavioral disturbance, psychotic disturbance, mood disturbance, and anxiety; E11.9 Type 2 diabetes mellitus without complications; E78.5 Hyperlipidemia, unspecified; I10 Essential (primary) hypertension; Z79.51 Long term (current) use of inhaled steroids; Z79.84 Long term (current) use of oral hypoglycemic drugs; Z79.899 Other long term (current) drug therapy; Z86.718 Personal history of other venous thrombosis and embolism; W01.0XXA Fall on same level from slipping, tripping and stumbling without subsequent striking against object, initial encounter; Y92.009 Unspecified place in unspecified non-institutional (private) residence as the place of occurrence of the external cause
CPT/HCPCS: 71045; 99284

== ENCOUNTER → 2020-09-01 | Outpatient (CLI) | payer MEDICARE ==
--- NOTE | 2020-09-01 11:13 | CT ---
EXAMINATION TYPE: CT angio chest DATE OF EXAM: 09/01/2020 10:59 AM COMPARISON: CT chest 04/11/2014 HISTORY: Abnormal coagulation CT DLP: 455 mGycm Automated exposure control for dose reduction was used. CONTRAST: CTA scan of the thorax is performed without and with IV Contrast, patient injected with 100 ml mL of Isovue 370, pulmonary embolism protocol. MIP images are created and reviewed. FINDINGS: LUNGS: The lungs are grossly clear, there is no concerning parenchymal mass or nodule identified. Re demonstrated calcified granulomas. There is no pleural effusion or pneumothorax seen. The tracheobro nchial tree is patent. MEDIASTINUM: There is satisfactory enhancement of the pulmonary artery and its branches, there is no CT evidence for pulmonary embolism. There are no greater than 1 cm hilar or mediastinal lymph nodes. Calcified mediastinal lymph nodes redemonstrated. Cardiac size normal. Calcified coronary artery dis ease. No pericardial effusion is seen. No thoracic aortic aneurysm. There is calcified and noncalcifi ed atherosclerotic disease of the thoracic aorta and great vessels, with approximately 50% stenosis o f the origin of the left common carotid artery. OTHER: Calcified granulomas of the spleen. Degenerative changes of the spine and shoulders. IMPRESSION: 1. NO EVIDENCE OF PULMONARY EMBOLISM. NO ACUTE CARDIOTHORACIC PROCESS. 2. ATHEROSCLEROTIC DISEASE OF THE AORTIC ARCH, WITH APPROXIMATELY 50% STENOSIS OF THE ORIGIN OF THE LEFT COMMON CAROTID ARTERY.
--- NOTE | 2020-09-01 11:39 | US ---
EXAMINATION TYPE: US venous doppler duplex UE LT DATE OF EXAM: 09/01/2020 COMPARISON: NONE CLINICAL HISTORY: R97.1 Abnormal Coagulation. Left arm pain SIDE PERFORMED: Left Extremely limited study due to patient in pain and unable to move her arm away from her side Left Arm: Visualized portions appear negative for DVT in IJV, subclavian and distal brachial veins Axillary, upper brachial, radial and ulnar veins not imaged due to limitations listed above Grayscale, color doppler, spectral doppler imaging performed of the deep veins of the left upper extr emity. There is normal flow, compressibility and vascular waveforms in the vessels sampled. IMPRESSION: Suboptimal study. No acute deep or superficial venous thrombosis identified on sampled ar eas. Incomplete sampling of the entire left upper extremity noted.
== END | disposition home or self-care (01) ==
LOC: RADCTMAIN 09:59
PROVIDERS: ATTEND Family Medicine
DX: I70.0 Atherosclerosis of aorta (principal); I65.22 Occlusion and stenosis of left carotid artery; M79.602 Pain in left arm
CPT/HCPCS: 93971; 71275; Q9967